=== PATIENT | female | born 1990 | race Hispanic/Latino ===

== ENCOUNTER 2016-11-19 21:33 | Emergency (ER) | payer OTHER ==
[~2016-11-19] VITALS: Ht 172.7 cm; Wt 122.7 kg
[~2016-11-19 21:33] MED LIST: Ascorbic Acid PO; DOCU-41 PO; FERR-74 PO; HYDR-4003 PO; IBUP800T28 PO; PNV1TABL57 PO; PROM25SU46 RC
[2016-11-19 22:08] VITALS: BP 121/82; PULSE 84; RESP 16; O2SAT 98
[2016-11-19 22:59] LABS: BASOPHILS % (AUTO) 0.4 % (0-3); EOSINOPHILS % (AUTO) 1.2 % (0-5); MONOCYTES % (AUTO) 6.1 % (4-12); Mean Corpuscular Hemoglobin 26.9 pg (27.0-35.0); Mean Corpuscular Volume 83.4 fL (81-100); NEUTROPHILS % (AUTO) 56.5 % (40-74); Platelet Count 288 bil/L (150-400)
--- NOTE | 2016-11-19 23:00 | ED.REPORT ---
HPI-Abd Pain F Under 40 Date of Service Nov 19, 2016 ED Provider: MD Kee This is a 26 year old female presenting to the emergency department complaining of suprapubic abdominal pain that began 12 hours ago. Abdominal pain is described as a sharp, stabbing sensation that is intermittent. Pain is exacerbated by movement. Pt adds that her period has been ongoing for the last month and has not stopped, which is abnormal, she is using 4 pads per day. Denies dysuria, hematochezia, nausea, vomiting, diarrhea, constipation. Nursing Notes Stated Complaint: PAIN IN STOMACH Chief Complaint: Female Abdominal Pain Nursing Notes Reviewed: Yes Allergies: Coded Allergies: No Known Allergies (Verified , 11/19/16) Scheduled ([Ascorbic Acid]) 500 MG TABLET 500 MG PO BIDWM Docusate Sodium (Colace) 100 Mg Capsule 100 MG PO BID Ferrous Sulfate (Feosol) 325 Mg Tablet 325 MG PO BIDWM Hyoscyamine SL (Levsin SL) 0.125 Mg Tab.subl 0.125 MG SL TID PNV CMB#95/FERROUS FUMARATE/FA-Expunged Drug, (-Expunged Drug, Do Not Renew!) 1 Each Tablet 1 EACH PO DAILY Scheduled PRN Hydrocodone-Acetaminophen 5-325 mg (Hydrocodone-Acetaminophen 5-325 mg) 1 Each Tablet 1-2 TABLET PO Q4H PRN PRN For Pain Ibuprofen (Ibuprofen) 800 Mg Tablet 800 MG PO Q6H PRN PRN For Pain Promethazine HCl (Phenergan) 25 Mg Supp.rect 25 MG RC QID PRN PRN For Nausea/ Vomiting General Time Seen by MD: 22:59 Chief Complaint Abdominal pain Hx Obtained From: Patient Arrived By: Walk-in Sudden in Onset?: Yes Onset Occurred: 9 - 12 hours ago Symptom Duration: Waxes and wanes Severity: Current: Mild Pertinent Negative: Pt denies other symptoms Recent Healthcare: No recent doctor visit, No recent hospitalization Similar Sx Previous: No Past Medical History Past Medical History Denies Past Surgical History none reported Smoking History Never Smoker Social History Alcohol Use: "Social" Drug Use: Denies drug use Other Social History: Good social support, Occupation works at [employer] Ambulatory Status Independent Review of Systems Constitutional: Denies: Chills, Fever Respiratory: Denies: Shortness of breath Cardiovascular: Denies: Chest pain GI: Reports: Abdominal pain, Denies: Constipation, Diarrhea, Nausea, Vomiting Female: Denies: Dysuria Complete sys rev & neg: except as marked. Physical Exam Initial Vital Signs Vital Signs (First) Date Time Temp Pulse Resp B/P Pulse Ox O2 Delivery O2 Flow Rate FiO2 11/19/16 22:08 36.1 84 16 121/82 98 Room Air Initial VS: Reviewed Head / Eyes: Atraumatic, Normocephalic, PERRL ENT: Mucous membranes moist, Conjunctiva normal, No scleral icterus Neck: Supple, Non-tender, Full range of motion Extremities: Vascular intact, Neuro intact, No swelling, No tenderness Skin: Warm, Dry, No cyanosis Neurologic: Alert, Oriented, Nonfocal Psychiatric: Mood/affect normal, Behavior normal, Normal thought content General/Constitutional: Awake, Alert Respiratory / Chest: Breath sounds NL, Breath sounds = bilat, No respiratory distress, No rales, No rhonchi, No wheezing Cardiovascular: Heart rate NL, Regular rhythm, Heart sounds NL, Peripheral circulation NL Abdomen: No guarding, No rebound, BS normoactive Tenderness/Guarding/Rebound: Positive: Tender LLQ..., Tender RLQ..., Tender suprapubic Back: Inspection NL, Non-tender, No CVA tenderness Female Genitourinary: Epic Ambulatory Analyst present, External genitalia NL, Os closed, No adnexal mass Normal vaginal sanchez without trauma or tears. Physiological discharge, IUD strings visible from cervical os. Mild cervical motion tenderness. Interpretation & Diagnostics Lab Results Interpretation Result Diagram: 11/19/16224911/19/162249 Test 11/19/16 22:50 11/19/16 23:58 White Blood Count 10.3th/mm3 (3.8-10.1) Red Blood Count 4.75mil/mm3 (3.90-5.20) Hemoglobin 12.8g/dL (12.0-15.6) Hematocrit 39.6% (35.0-46.0) Mean Corpuscular Volume 83.4fL (81-100) Mean Corpuscular Hemoglobin 26.9pg (27.0-35.0) Mean Corpuscular Hemoglobin Concent 32.3% (32.0-37.0) Red Cell Distribution Width 13.8% (12.3-15.4) Platelet Count 288bil/L (150-400) Neutrophils (%) (Auto) 56.5% (40-74) Lymphocytes (%) (Auto) 35.7% (14-46) Monocytes (%) (Auto) 6.1% (4-12) Eosinophils (%) (Auto) 1.2% (0-5) Basophils (%) (Auto) 0.4% (0-3) Sodium Level 141mEq/L (134-144) Potassium Level 4.1mEq/L (3.5-5.2) Chloride Level 103mEq/L (97-108) Carbon Dioxide Level 25mmol/L (18-29) Blood Urea Nitrogen 11mg/dL (6-20) Creatinine 0.76mg/dL (0.57-1.00) Estimat Glomerular Filtration Rate 132mL/min (>59) Glucose Level 104mg/dL (60-99) Calcium Level 8.7mg/dL (8.5-10.1) Magnesium Level 1.9mg/dL (1.6-2.6) Total Bilirubin 0.2mg/dL (0.0-1.2) Aspartate Amino Transf (AST/SGOT) 18U/L (0-50) Alanine Aminotransferase (ALT/SGPT) 17U/L (0-32) Alkaline Phosphatase 59U/L (25-150) Total Protein 7.6g/dL (6.4-8.4) Albumin 4.1g/dL (3.4-5.0) Lipase 30U/L (13-60) Hold Lane Top Tube Received (Received) Urine Color Yellow (YELLOW) Urine Appearance Clear (CLEAR,HAZY) Urine pH 6.0 (5.0-8.0) Urine Specific [place] 1.030 (1.003-1.035) Urine Protein Negativemg/dL (NEG,TRACE) Urine Glucose (UA) Negativemg/dL (NEGATIVE) Urine Ketones Negativemg/dL (NEGATIVE) Urine Occult Blood Moderate (NEGATIVE) Urine Nitrite Negative (NEGATIVE) Urine Bilirubin Negative (NEGATIVE) Urine Urobilinogen Normalmg/dL (NORMAL) Urine Leukocyte Esterase Negative (NEGATIVE) Urine RBC 0-2/hpf (0-2) Urine WBC 0-5/hpf (0-5) Urine Epithelial Cells Moderate/hpf (NONE-MOD) Urine Crystals 0 (NONE SEEN) Urine Bacteria Few/hpf (NONE-FEW) Urine Hyaline Casts None/lpf (NONE) Urine Granular Casts None seen (NONE SEEN) Urine Waxy Casts None seen (NONE SEEN) Urine Red Blood Cell Casts None seen (NONE SEEN) Urine White Blood Cell Casts None seen (NONE SEEN) Urine Mucus None seen (None Seen) Urine Trichomonas None seen (NONE SEEN) Urine Yeast None (NONE SEEN) Urinalysis Comment None Urine Culture Reflexed Not indicated Hold Urine Received (Received) Re-Eval/Medical Decision Med Decision/Clinical Course 26-year-old female here with suprapubic abdominal pain. Differential diagnosis includes but is not limited to versus urinary tract infection versus vaginal infection versus PID. Patient's pelvic exam is unremarkable. She has no evidence of BV or yeast infection on wet prep. Her urine test is negative, and she does not have UTI. Her exam is not consistent with PID, as there is no purulent discharge from her cervix, though she has very mild cervical motion tenderness. At this time, I do not feel the patient requires treatment for PID or other infectious process. She is amenable to discharge home with follow-up with her primary care physician and has been given very strict return precautions. Re-Evaluation/Progress : Time of Eval: 00:55 Re-Evaluation/Progress Note: Discussed lab results and plan for discharge, pt understands and agrees with plan, all questions addressed. Counseled Regarding: Diagnosis, Lab results, Need for follow-up, When/why to return to ED Discharge & Departure Primary Impression: Abdominal pain Abdominal location: unspecified location Qualified Code: R10.9 - Unspecified abdominal pain Disposition: Home Discharge Condition All VS Reviewed: Yes Condition: Stable Patient Instructions: Acute Abdominal Pain (ED) Additional Instructions: Thank you for seeking care at the emergency department. Take pain medication as prescribed. Follow-up with your primary care provider. Return to the emergency department for any new or worsening symptoms Referrals: [facility] Scribe Attestation Portions of this note were transcribed by Maliha Melendez. I, Dr. Sweet personally performed the history, physical exam and medical decision-making; I reviewed and confirmed the accuracy of the information in the transcribed note. Signed by: sandeep Sheikh. 11/19/2016, 03:00. Sanna Sweet MD Nov 19, 2016 23:00 MALIHA MELENDEZ Nov 19, 2016 23:12
[2016-11-19 23:19] LABS: Magnesium 1.9 mg/dL (1.6-2.6)
[2016-11-20 00:29] LABS: APPEARANCE,URINE CLEAR (CLEAR,HAZY); COLOR,URINE YELLOW (YELLOW); OCCULT BLOOD,URINE MODERATE (NEGATIVE); UROBILINOGEN,URINE NORMAL (NORMAL)
[2016-11-20] MEDS ORDERED: HYOS0.1281 SL (01:00)
[2016-11-20 01:17] VITALS: BP 123/79; PULSE 88; RESP 16; O2SAT 95
== END 2016-11-20 01:20 | disposition home or self-care (01) ==
LOC: SED 21:33
DX: R10.30 Lower abdominal pain, unspecified (principal); Z97.5 Presence of (intrauterine) contraceptive device

== ENCOUNTER 2016-11-29 19:26 | Emergency (ER) | payer OTHER ==
[~2016-11-29] VITALS: Ht 175.3 cm; Wt 270.0 kg
[~2016-11-29 19:26] MED LIST changes: +HYOS0.1281 SL
[2016-11-29 19:37] VITALS: BP 119/72; PULSE 69; RESP 14; O2SAT 100
[2016-11-29 20:05] LABS: BASOPHILS % (AUTO) 0.3 % (0-3); MONOCYTES % (AUTO) 6.6 % (4-12); Mean Corpuscular Hemoglobin 26.8 pg (27.0-35.0); Mean Corpuscular Volume 83.6 fL (81-100); Platelet Count 277 bil/L (150-400)
[2016-11-29 20:28] LABS: Magnesium 1.9 mg/dL (1.6-2.6)
[2016-11-29 21:13] LABS: APPEARANCE,URINE HAZY (CLEAR,HAZY); COLOR,URINE YELLOW (YELLOW); OCCULT BLOOD,URINE LARGE (NEGATIVE)
[2016-11-29 21:14] LABS: UROBILINOGEN,URINE NORMAL (NORMAL)
--- NOTE | 2016-11-29 21:51 | ED.REPORT ---
HPI-Abd Pain F Under 40 Date of Service Nov 29, 2016 ED Provider: Dr. Peter Rivas M.D. A healthy 26 year old female s/p copper IUD implant (01/2016) presents to the ED with intermittent suprapubic pain onset two weeks ago. The patient also reports vaginal bleeding onset six weeks ago that began as a normal menstrual period. She denies nausea, vomiting, or dysuria. The patient was recently seen in the ED with similar symptoms on 11/19/16. Nursing Notes Stated Complaint: STOMACH PAIN Chief Complaint: Female Abdominal Pain Nursing Notes Reviewed: Yes Allergies: Coded Allergies: No Known Allergies (Verified , 11/29/16) Scheduled ([Ascorbic Acid]) 500 MG TABLET 500 MG PO BIDWM Docusate Sodium (Colace) 100 Mg Capsule 100 MG PO BID Doxycycline Monohyd (Doxycycline Monohyd) 100 Mg Capsule 100 MG PO BID Ferrous Sulfate (Feosol) 325 Mg Tablet 325 MG PO BIDWM Hyoscyamine SL (Levsin SL) 0.125 Mg Tab.subl 0.125 MG SL TID Metronidazole (Metronidazole) 500 Mg Tablet 500 MG PO TID PNV CMB#95/FERROUS FUMARATE/FA-Expunged Drug, (-Expunged Drug, Do Not Renew!) 1 Each Tablet 1 EACH PO DAILY Scheduled PRN Hydrocodone-Acetaminophen 5-325 mg (Hydrocodone-Acetaminophen 5-325 mg) 1 Each Tablet 1-2 TABLET PO Q4H PRN PRN For Pain Ibuprofen (Ibuprofen) 800 Mg Tablet 800 MG PO Q6H PRN PRN For Pain Naproxen (Naprosyn) 500 Mg Tablet 500 MG PO BID PRN PRN For Pain Promethazine HCl (Phenergan) 25 Mg Supp.rect 25 MG RC QID PRN PRN For Nausea/ Vomiting General Time Seen by MD: 21:51 Chief Complaint Abdominal pain (Suprapubic) Hx Obtained From: Patient Arrived By: Walk-in Sudden in Onset?: Yes Onset Occurred: More than a week ago... (2 weeks) Symptom Duration: Intermittent Location: : Suprapubic Quality: Painful Severity: Current: Moderate Severity: Maximum: Moderate Associated with: Reports: Vaginal bleeding, Denies: Dysuria, Fever, Nausea, Vomiting Sexual History / Control: Reports IUD (Copper) Pertinent Negative: Relieved by nothing Recent Healthcare: Recent doctor visit Similar Sx Previous: Yes Past Medical History Past Medical History Denies Past Surgical History None reported Smoking History Never Smoker Social History Alcohol Use: "Social" Drug Use: Denies drug use Other Social History: Good social support, Occupation works at [employer] Ambulatory Status Independent Review of Systems Constitutional: Denies: Fever Respiratory: Denies: Non-productive cough, Shortness of breath GI: Reports: Abdominal pain (Suprapubic), Denies: Nausea, Vomiting Female: Reports: Vaginal bleeding - abnl (6 weeks), Denies: Dysuria Complete sys rev & neg: except as marked. Physical Exam Initial Vital Signs Vital Signs (First) Date Time Temp Pulse Resp B/P Pulse Ox O2 Delivery O2 Flow Rate FiO2 11/29/16 19:37 36.1 69 14 119/72 100 Room Air Initial VS: Reviewed Head / Eyes: Atraumatic, Normocephalic ENT: Conjunctiva normal, No scleral icterus Neck: Supple, Full range of motion Skin: Warm, Dry, No cyanosis Neurologic: Alert, Oriented, Nonfocal Psychiatric: Mood/affect normal, Behavior normal, Normal thought content General/Constitutional: Awake, Alert, No acute distress Respiratory / Chest: Breath sounds NL, Breath sounds = bilat, No respiratory distress Cardiovascular: Heart rate NL, Regular rhythm, Heart sounds NL Abdomen: Soft, Non-tender Obese Female 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 Vaginal Bleeding / Discharge: Positive: Discharge scant (Sent to lab) Pelvic Exam: Positive: IUD present (Shallowly implanted ), Uterus tender (Mild) Interpretation & Diagnostics URINE : Negative URINE DIPSTICK: 1.005 sp gravity 7 pH ++ Leukocyte Esterase Normal Glucose Normal Urobilinogen ~250 Jesús/ml Blood Lab Results Interpretation Result Diagram: 11/29/16 1950 11/29/16 1950 Test 11/29/16 19:50 11/29/16 20:38 White Blood Count 9.7th/mm3 (3.8-10.1) Red Blood Count 4.63mil/mm3 (3.90-5.20) Hemoglobin 12.4g/dL (12.0-15.6) Hematocrit 38.7% (35.0-46.0) Mean Corpuscular Volume 83.6fL (81-100) Mean Corpuscular Hemoglobin 26.8pg (27.0-35.0) Mean Corpuscular Hemoglobin Concent 32.0% (32.0-37.0) Red Cell Distribution Width 13.9% (12.3-15.4) Platelet Count 277bil/L (150-400) Neutrophils (%) (Auto) 61.0% (40-74) Lymphocytes (%) (Auto) 30.9% (14-46) Monocytes (%) (Auto) 6.6% (4-12) Eosinophils (%) (Auto) 1.0% (0-5) Basophils (%) (Auto) 0.3% (0-3) Sodium Level 138mEq/L (134-144) Potassium Level 4.1mEq/L (3.5-5.2) Chloride Level 101mEq/L (97-108) Carbon Dioxide Level 25mmol/L (18-29) Blood Urea Nitrogen 13mg/dL (6-20) Creatinine 0.59mg/dL (0.57-1.00) Estimat Glomerular Filtration Rate 176mL/min (>59) Glucose Level 98mg/dL (60-99) Calcium Level 8.7mg/dL (8.5-10.1) Magnesium Level 1.9mg/dL (1.6-2.6) Total Bilirubin 0.2mg/dL (0.0-1.2) Aspartate Amino Transf (AST/SGOT) 19U/L (0-50) Alanine Aminotransferase (ALT/SGPT) 19U/L (0-32) Alkaline Phosphatase 57U/L (25-150) Total Protein 7.7g/dL (6.4-8.4) Albumin 4.1g/dL (3.4-5.0) Lipase 33U/L (13-60) Hold Lane Top Tube Received (Received) Urine Color Yellow (YELLOW) Urine Appearance Hazy (CLEAR,HAZY) Urine pH 7.0 (5.0-8.0) Urine Specific [place] 1.015 (1.003-1.035) Urine Protein Negativemg/dL (NEG,TRACE) Urine Glucose (UA) Negativemg/dL (NEGATIVE) Urine Ketones Negativemg/dL (NEGATIVE) Urine Occult Blood Large (NEGATIVE) Urine Nitrite Negative (NEGATIVE) Urine Bilirubin Negative (NEGATIVE) Urine Urobilinogen Normalmg/dL (NORMAL) Urine Leukocyte Esterase Moderate (NEGATIVE) Urine RBC 0-2/hpf (0-2) Urine WBC 6-10/hpf (0-5) Urine Epithelial Cells Many/hpf (NONE-MOD) Urine Crystals None seen (NONE SEEN) Urine Bacteria Moderate/hpf (NONE-FEW) Urine Hyaline Casts None/lpf (NONE) Urine Granular Casts None seen (NONE SEEN) Urine Waxy Casts None seen (NONE SEEN) Urine Red Blood Cell Casts None seen (NONE SEEN) Urine White Blood Cell Casts None seen (NONE SEEN) Urine Mucus None seen (None Seen) Urine Trichomonas None seen (NONE SEEN) Urine Yeast None (NONE SEEN) Urinalysis Comment None Urine Culture Reflexed Indicated Procedures IUD REMOVAL: Time: 22:30 Patient consent for procedure Appropriate hand hygiene utilized IUD removed easily No complications Tolerated procedure well Patient stable Re-Eval/Medical Decision Med Decision/Clinical Course Med Decision/Clinical Course: 26-year-old with menorrhagia for a month, who is ten months out from placement of a copper IUD. She has very low-grade evidence of UTI today, but her bleeding is clearly not related to her UTI. Discussed various alternatives with her including an attempt at clearing this endometritis with antibiotics, and the probable failure, as long as the IUD remains in place. She first have it out, that was accomplished. Of note, the IUD was not very deeply placed in uterus with a lot of string protruding and the tip of it just barely up above the cervical canal. Some of her pain and possibly the boat of infection relates to its apparent malposition within the uterus. It may have migrated after placement. Cultures were obtained. She was begun with Rocephin here, with doxycycline and Flagyl to follow. Naprosyn for pain and bleeding relief. Follow up with PCP. Re-Evaluation/Progress : Time of Eval: 22:30 Re-Evaluation/Progress Note: Pelvic exam performed and IUD removed. Discussed with patient lab results, diagnosis, and plan for discharge. Follow-up and return to the ER instructions given. Patient agrees with plan for care and all questions were addressed. Counseled Regarding: Diagnosis, Lab results, Need for follow-up, When/why to return to ED Discharge & Departure Shift Change Sign-Out Response to Therapy: Improved Primary Impression: Endometritis Additional Impression: Malpositioned intrauterine device Encounter type: initial encounter Qualified Code: T83.89XA - Other specified complication of genitourinary prosthetic devices, implants and grafts , initial encounter Disposition: Home Discharge Condition All VS Reviewed: Yes Condition: Improved Patient Instructions: Endometriosis (ED) Additional Instructions: Flagyl three times daily. Doxycycline twice daily for ten days Naprosyn twice daily for cramps and bleeding. Follow-up with your doctor in the office Use an alternative means of control Return for any immediate issues Referrals: NOPCP (PCP) [facility] Scribvikki Attestation Portions of this note were transcribed by Claudia Bates. I, Dr. Rivas, personally performed the history, physical exam, and medical decision-making; I reviewed and confirmed the accuracy of the information in the transcribed note. Signed by: Danielle Diggs, 11/30/2016, 01:15 copies to: [facility] Peter Rivas MD Nov 29, 2016 21:51 CLAUDIA BATES Nov 29, 2016 22:05
[2016-11-29] MEDS ORDERED: cefTRIAXone Inj 500 MG, Lidocaine PF 1% Inj 1 ML in Syringe 1 EACH IM ONE (22:55)
[2016-11-29] MEDS ORDERED: DOXY100C43 PO (22:59)
[2016-11-29] MEDS ORDERED: METR500T19 PO (22:59)
[2016-11-29] MEDS ORDERED: NAPR500T PO (23:00)
[2016-11-29 23:45] VITALS: BP 132/94; PULSE 68; RESP 20; O2SAT 100
== END 2016-11-29 23:46 | disposition home or self-care (01) ==
LOC: SED 19:26
DX: T83.32XA Displacement of intrauterine contraceptive device, initial encounter (principal); N71.9 Inflammatory disease of uterus, unspecified; Y84.8 Other medical procedures as the cause of abnormal reaction of the patient, or of later complication, without mention of misadventure at the time of the procedure; Y93.9 Activity, unspecified; Y92.9 Unspecified place or not applicable; Y99.9 Unspecified external cause status
CPT/HCPCS: 36415; 58301; 80053; 81000; 81025; 83690; 83735; 85025; 87070; 87075; 87077; 87086; 87088; 87186; 87205; 87210; 87491; 87591; 96372; 99284; G0463; J0696

== ENCOUNTER 2017-02-14 08:23 | Emergency (ER) | payer OTHER ==
[~2017-02-14] VITALS: Ht 175.3 cm; Wt 122.7 kg
[~2017-02-14 08:23] MED LIST changes: +DOXY100C43 PO; +METR500T19 PO; +NAPR500T PO
[2017-02-14 08:26] VITALS: BP 121/78; PULSE 82; RESP 16; O2SAT 97
--- NOTE | 2017-02-14 08:28 | ED.REPORT ---
HPI-Abd Pain F Under 40 Date of Service February 14, 2017 ED Provider: The patient is a 26 year old female with no pertinent medical history, who presents to the emergency department complaining of right lower abdominal pain that began 2 days ago. The patient is currently about 5 weeks . She was seen at urgent care 2 days ago for the same and had an ultrasound that was unable to rule out ectopic . She was started on Clindamycin for bacterial vaginosis. She was seen by an OBGYN (Dr. Devika Luevano) yesterday who told her to it was too early to tell. The patient returns today complaining of increased RLQ pain, fatigue, and lightheadedness. She denies vaginal bleeding , vaginal discharge, diarrhea, nausea, vomiting, constipation, dysuria, hematuria, fever or chills. Nursing Notes Stated Complaint: LOW STOMACH PAIN Chief Complaint: Female Abdominal Pain Nursing Notes Reviewed: Yes Allergies: Coded Allergies: No Known Allergies (Verified , 11/29/16) Scheduled Clindamycin (Clindamycin) 300 Mg Capsule 300 MG PO BID Qfo842/Iron Fumarate/FA/Dss ( 19 Tablet) 1 Each Tablet 1 EACH PO DAILY General Time Seen by MD: 08:29 Chief Complaint Abdominal pain Hx Obtained From: Patient Arrived By: Walk-in Sudden in Onset?: Yes Onset Occurred: 2 days ago Symptom Duration: Since onset Progression since Onset: Constant, Gradually worsening Location: : RLQ Quality: Painful Severity: Current: Moderate Severity: Maximum: Severe Status: Positive - home urine HCG, Positive - ED urine HCG Recent Healthcare: No recent hospitalization, Recent doctor visit Similar Sx Previous: No Past Medical History Past Medical History Notes: , currently 5 weeks According to previous note the patient is AB+ Past Medical History Denies Past Surgical History None reported Family History Noncontributory Smoking History Never Smoker Social History Alcohol Use: Denies alcohol use Drug Use: Denies drug use Other Social History: Good social support, , Local resident Occupation works at [employer] Ambulatory Status Independent Review of Systems Constitutional: Reports: Fatigue, Denies: Chills, Fever GI: Reports: Abdominal pain, Denies: Constipation, Diarrhea, Vomiting Female: Reports: , Denies: Dysuria, Hematuria, Vaginal bleeding - abnl, Vaginal discharge Complete sys rev & neg: except as marked. Neurologic: Reports: Lightheaded Physical Exam Initial Vital Signs Vital Signs (First) Date Time Temp Pulse Resp B/P Pulse Ox O2 Delivery O2 Flow Rate FiO2 02/14/17 08:26 36.8 82 16 121/78 97 Room Air Initial VS: Reviewed Head / Eyes: Atraumatic, Normocephalic, PERRL ENT: Mucous membranes moist, Conjunctiva normal, No scleral icterus Neck: Supple, Non-tender, Full range of motion Lymphatic: No lymphadenopathy Extremities: Vascular intact, Neuro intact, No swelling, No tenderness Skin: Warm, Dry, No cyanosis Neurologic: Alert, Oriented, Nonfocal Psychiatric: Mood/affect normal, Behavior normal, Normal thought content General/Constitutional: Awake, Alert, No acute distress, Well appearing Respiratory / Chest: Atraumatic, Breath sounds NL, Breath sounds = bilat, No respiratory distress, No rales, No rhonchi, No wheezing Cardiovascular: Heart rate NL, Regular rhythm, Heart sounds NL, No gallop, No murmurs, No rubs, Peripheral circulation NL Abdomen: Soft, No guarding, No rebound, BS normoactive, No distention, No hernia, No palpable mass Right pelvic tenderness Back: Inspection NL, Non-tender, No CVA tenderness Female Genitourinary: Exam deferred Interpretation & Diagnostics Interpretation & Diagnostics: 02/12/2017 LABS: hCG 3642 hct 38.3 Platelets 261 WBC 8.6 Clue cells present on vaginal swab Negative gonorrhea and chlamydia Urine culture showed mixed urogenital rober (02/12/2017) OUTPATIENT US OB IMPRESSION: 8mm saclike intrauterine fluid collection is seen without pole or yolk sac. Differential considerations would include early intrauterine gestation as well as occult ectopic . Recommend clinical correlation with serial beta-hCGs and/or followup sonographic imaging if indicated. Dictated by: Gopi Martinze RRSara Interpreted: Anna Lee MD on 02/12/2017 at 11: 52 OB US FROM TODAY IMPRESSION: 1. Saclike fluid collection redemonstrated unchanged in size with mean sac diameter measuring 8 mm corresponding to roughly 5 weeks 4 days. The saclike fluid collection appears to be abnormally positioned superiorly in the uterus with surrounding myometrium estimated at 5 mm. Interstitial location of the cannot be excluded and close clinical correlation and followup is recommended. 2. As before, no definite double decidual sac sign, yolk sac or pole is present and viability of the cannot be determined. Dr. Templeton given results at 1000 hrs. 02.14.17. Dictated by: Gopi SCOTT Interpreted: Nain River MD on 02/14/2017 at 12: 08 Lab Results Interpretation Result Diagram: 02/14/17 0848 02/14/17 0848 Test 02/14/17 08:48 02/14/17 08:57 White Blood Count 8.3th/mm3 (3.8-10.1) Red Blood Count 4.44mil/mm3 (3.90-5.20) Hemoglobin 12.1g/dL (12.0-15.6) Hematocrit 36.8% (35.0-46.0) Mean Corpuscular Volume 82.9fL (81-100) Mean Corpuscular Hemoglobin 27.3pg (27.0-35.0) Mean Corpuscular Hemoglobin Concent 32.9% (32.0-37.0) Red Cell Distribution Width 14.7% (12.3-15.4) Platelet Count 247bil/L (150-400) Sodium Level 139mEq/L (134-144) Potassium Level 3.8mEq/L (3.5-5.2) Chloride Level 105mEq/L (97-108) Carbon Dioxide Level 20mmol/L (18-29) Blood Urea Nitrogen 9mg/dL (6-20) Creatinine 0.52mg/dL (0.57-1.00) Estimat Glomerular Filtration Rate 204mL/min (>59) Glucose Level 105mg/dL (60-99) Calcium Level 8.7mg/dL (8.5-10.1) Total Bilirubin 0.3mg/dL (0.0-1.2) Aspartate Amino Transf (AST/SGOT) 14U/L (0-50) Alanine Aminotransferase (ALT/SGPT) 16U/L (0-32) Alkaline Phosphatase 52U/L (25-150) Total Protein 7.2g/dL (6.4-8.4) Albumin 3.9g/dL (3.4-5.0) HCG Beta Subunit 6689mIU/mL Hold Urine Received (Received) Re-Eval/Medical Decision Med Decision/Clinical Course Med Decision/Clinical Course: Patient's signs and symptoms and clinical history including previous imaging are suspicious for ectopic . Once labs and ultrasound were obtained an OBconsulted in the ER was requested. The patient was seen and evaluated by POLICE SUPERINTENDENT who does not feel that this is an ectopic and discussed discharge planning with the patient. She was in agreement with this. Strict return in follow-up precautions are given. Source of Hx: Old records Re-Evaluation/Progress : Time of Eval: 13:15 Re-Evaluation/Progress Note: Rechecked the patient. Discussed plan for discharge with outpatient followup. All questions were addressed. Consultation #1: Referral / Consult Name: Carlos Sierra MD Call Returned at: 10:55 Note: Spoke with the one of the OBGYN's at the women[facility] clinic, about the patient's case and ultrasound results. He is not route driver salesperson today but took down the patient's info and he will try to get someone to come down and see her. Consultation #2: Referral / Consult Name: Kathleen Peter MD Call Returned at: 11:46 Biological Lab Technician: Will see patient, Agrees with eval, Agrees with plan Note: Spoke with the on-call OBGYN about the patient's case and ultrasound results. Will come and see the patient. Consultation #3: Referral / Consult Name: Kathleen Peter MD Call Returned at: 13:00 Note: Dr. Peter examined the patient and feels that she is safe to go home with outpatient followup. Counseled Regarding: Diagnosis, Lab results Discharge & Departure Primary Impression: Pelvic pain Additional Impression: Weeks of gestation: less than 8 weeks Qualified Code: Z3A.01 - Less than 8 weeks gestation of Disposition: Home Discharge Condition All VS Reviewed: Yes Condition: Stable Patient Instructions: (GEN) Additional Instructions: Thank you for entrusting us with your care today. Dr. Peter, the on-call OBGYN examined you and looked at your results. He feels that you are safe to go home at this time. You have an appointment to get a repeat hCG this Saturday and you have another appointment ultrasound to get a repeat ultrasound next week. You need to call the women's clinic today to schedule a followup appointment with one of the physicians. Return to the emergency department for increased pain, vaginal bleeding, lightheadedness, dizziness, shortness of breath or any other new or worsening symptoms. Referrals: Devika Luevano MD Attestation Portions of this note were transcribed by Ysabel Donaldson. I, Dr. Templeton personally performed the history, physical exam and medical decision-making; I reviewed and confirmed the accuracy of the information in the transcribed note. Signed by: Danielle Matt, 02/14/2017 at 1400. copies to: Devika Luevano MD, Timothy S DO February 14, 2017 08:28 Ysabel Donaldson February 14, 2017 08:30
[2017-02-14] MEDS ORDERED: 0.9% Sodium Chloride 1,000 ML IV ONE ×2 (08:37→10:35)
[2017-02-14 09:01] LABS: Mean Corpuscular Hemoglobin 27.3 pg (27.0-35.0); Mean Corpuscular Volume 82.9 fL (81-100)
[2017-02-14] MEDS ORDERED: PREN-56 PO (09:36)
[2017-02-14] MEDS ORDERED: CLIN-78 PO (09:38)
[2017-02-14] MEDS ORDERED: Ondansetron 2 mg/mL 2 mL Inj IVPUSH PRN (09:45)
[2017-02-14 11:00] VITALS: BP 123/70; PULSE 74; RESP 15; O2SAT 98
--- NOTE | 2017-02-14 12:15 | DRSVH ---
PROCEDURE: US PELVIC SONOGRAM + TRANSVAGINAL SONOGRAM INDICATIONS: rule out ectopic TECHNIQUE: Real-time scanning was performed of the pelvic organs, with image documentation. Additional endovagi nal scanning was necessary due to incomplete visualization of the adnexal and endometrial structures by transabdominal scanning. COMPARISON: [facility] Ul[facility]ound, US, US OB<14 WKS+OB TRANSVAG, 02/12/2017, 10:56. FINDINGS: Transabdominal scanning: Limited scanning through the kidneys shows no hydronephrosis. No pathologi c free abdominal or pelvic fluid. Endovaginal scanning: Uterus: Uterus is normal in size. Saclike fluid collection again seen within the uterus not signifi cantly changed in size with mean sac diameter of 8 mm corresponding to 5 weeks 4 days. On today's ex amination, the sac appears to be positioned within the superior aspect of the uterus with roughly 5 m m of surrounding myometrium. Interstitial location of the cannot be excluded. Yolk sac or pole again not visualized and no definite double decidual sac sign. Ovaries: Within normal limits bilaterally. No adnexal masses seen. IMPRESSION: 1. Saclike fluid collection redemonstrated unchanged in size with mean sac diameter measuring 8 mm co rresponding to roughly 5 weeks 4 days. The saclike fluid collection appears to be abnormally positio latosha superiorly in the uterus with surrounding myometrium estimated at 5 mm. Interstitial location of the cannot be excluded and close clinical correlation and followup is recommended. 2. As before, no definite double decidual sac sign, yolk sac or pole is present and viability o f the cannot be determined. Dr. Templeton given results at 1000 hrs. 5. Dictated by: Gopi SCOTT Interpreted: Nain River MD on 02/14/2017 at 12:08 Transcribed by: KLEVER on 02/14/2017 at 12:14 Approved by: Fco River M.D. on 02/14/2017 at 12:44
--- NOTE | 2017-02-14 13:10 | PCM.CONSUR ---
Subjective Date of Service: February 14, 2017 History of Present Illness Gretel is a 26-year-old 4 para 3 who presented to the emergency room today with complaints of dizziness, shortness of breath and feeling like she was given a pass out. She reports that she had increased right lower quadrant pain that was about a 6 out of 10. She was previously seen in urgent care 2 days ago and had a quantitative hCG at that time was 3642 and had a transvaginal ultrasound showing an irregular appearing gestational sac without a pole. Repeat pelvic ultrasound today again shows a empty gestational sac in the fundal region that is unchanged in size from her previous ultrasound several days ago. Her quantitative hCG has increased to over 6889. She has a normal hemoglobin and hematocrit. Laboratory Tests 72 Hours Test 02/14/17 08:48 02/14/17 08:57 White Blood Count 8.3th/mm3 (3.8-10.1) Red Blood Count 4.44mil/mm3 (3.90-5.20) Hemoglobin 12.1g/dL (12.0-15.6) Hematocrit 36.8% (35.0-46.0) Mean Corpuscular Volume 82.9fL (81-100) Mean Corpuscular Hemoglobin 27.3pg (27.0-35.0) Mean Corpuscular Hemoglobin Concent 32.9% (32.0-37.0) Red Cell Distribution Width 14.7% (12.3-15.4) Platelet Count 247bil/L (150-400) Sodium Level 139mEq/L (134-144) Potassium Level 3.8mEq/L (3.5-5.2) Chloride Level 105mEq/L (97-108) Carbon Dioxide Level 20mmol/L (18-29) Blood Urea Nitrogen 9mg/dL (6-20) Creatinine 0.52mg/dL (0.57-1.00) Estimat Glomerular Filtration Rate 204mL/min (>59) Glucose Level 105mg/dL (60-99) Calcium Level 8.7mg/dL (8.5-10.1) Total Bilirubin 0.3mg/dL (0.0-1.2) Aspartate Amino Transf (AST/SGOT) 14U/L (0-50) Alanine Aminotransferase (ALT/SGPT) 16U/L (0-32) Alkaline Phosphatase 52U/L (25-150) Total Protein 7.2g/dL (6.4-8.4) Albumin 3.9g/dL (3.4-5.0) HCG Beta Subunit 6689mIU/mL Hold Urine Received (Received) Allergy Allergies: Coded Allergies: No Known Allergies (Verified , 11/29/16) Medications Clindamycin (Clindamycin) 300 Mg Capsule 300 MG PO BID (Reported) [id number]/Iron Fumarate/FA/Dss ( 19 Tablet) 1 Each Tablet 1 EACH PO DAILY ( Reported) Discontinued Medications ([Ascorbic Acid]) 500 MG TABLET 500 MG PO BIDWM Prescribed by: TORY POOL DO Docusate Sodium (Colace) 100 Mg Capsule 100 MG PO BID Prescribed by: TORY POOL DO Doxycycline Monohyd (Doxycycline Monohyd) 100 Mg Capsule 100 MG PO BID Prescribed by: JOSE LUIS PÉREZ MD Ferrous Sulfate (Feosol) 325 Mg Tablet 325 MG PO BIDWM Prescribed by: TORY POOL DO Hydrocodone-Acetaminophen 5-325 mg (Hydrocodone-Acetaminophen 5-325 mg) 1 Each Tablet 1-2 TABLET PO Q4H PRN PRN For Pain Prescribed by: TORY POOL DO Hyoscyamine SL (Levsin SL) 0.125 Mg Tab.subl 0.125 MG SL TID Prescribed by: DEXTER NORMAN Ibuprofen (Ibuprofen) 800 Mg Tablet 800 MG PO Q6H PRN PRN For Pain Prescribed by: TORY POOL DO Metronidazole (Metronidazole) 500 Mg Tablet 500 MG PO TID Prescribed by: JOSE LUIS PÉREZ MD Naproxen (Naprosyn) 500 Mg Tablet 500 MG PO BID PRN PRN For Pain Prescribed by: JOSE LUIS PÉREZ MD PNV CMB#95/FERROUS FUMARATE/FA-Expunged Drug, (-Expunged Drug, Do Not Renew!) 1 Each Tablet 1 EACH PO DAILY (Reported) Promethazine HCl (Phenergan) 25 Mg Supp.rect 25 MG RC QID PRN PRN For Nausea/ Vomiting Prescribed by: TITA PATTERSON MD Past Surgical History Surgeries: No Social History Hx Alcohol Use: No Hx Substance Use: No Hx Tobacco Use: No PMH HEENT History History of ENT Problems?: No Cardiovascular History History of Heart Problems?: No Cardiovascular History: Denies:: Congestive Heart Failure Hypertension Respiratory History of Respiratory Problem: No Respiratory History: Denies:: Tuberculosis Neurological History Hx Neurologic Problems?: No Gastrointestinal History HX of GI Problems?: No Genitourinary History Hx of Gu Problems?: No Musculoskeletal History Hx Musculoskeletal Problems?: No Other History Hx Any Other Health Problems?: No Diabetes: No Social History Hx Alcohol Use: NoHx Substance Use: NoHx Tobacco Use: No Smoking Status: Never Smoker Family History Family History: Noncontributory Objective Exam Vital Signs & I/O Vital Sign- Last 8 Hours Date Time Temp Pulse Resp B/P Pulse Ox O2 Delivery O2 Flow Rate FiO2 02/14/17 11:00 74 15 123/70 98 Room Air 02/14/17 08:26 36.8 82 16 121/78 97 Room Air Lab & Micro Results Laboratory Tests Test 02/14/17 08:48 02/14/17 08:57 White Blood Count 8.3th/mm3 (3.8-10.1) Red Blood Count 4.44mil/mm3 (3.90-5.20) Hemoglobin 12.1g/dL (12.0-15.6) Hematocrit 36.8% (35.0-46.0) Mean Corpuscular Volume 82.9fL (81-100) Mean Corpuscular Hemoglobin 27.3pg (27.0-35.0) Mean Corpuscular Hemoglobin Concent 32.9% (32.0-37.0) Red Cell Distribution Width 14.7% (12.3-15.4) Platelet Count 247bil/L (150-400) Sodium Level 139mEq/L (134-144) Potassium Level 3.8mEq/L (3.5-5.2) Chloride Level 105mEq/L (97-108) Carbon Dioxide Level 20mmol/L (18-29) Blood Urea Nitrogen 9mg/dL (6-20) Creatinine 0.52mg/dL (0.57-1.00) Estimat Glomerular Filtration Rate 204mL/min (>59) Glucose Level 105mg/dL (60-99) Calcium Level 8.7mg/dL (8.5-10.1) Total Bilirubin 0.3mg/dL (0.0-1.2) Aspartate Amino Transf (AST/SGOT) 14U/L (0-50) Alanine Aminotransferase (ALT/SGPT) 16U/L (0-32) Alkaline Phosphatase 52U/L (25-150) Total Protein 7.2g/dL (6.4-8.4) Albumin 3.9g/dL (3.4-5.0) HCG Beta Subunit 6689mIU/mL Hold Urine Received (Received) Result Diagram: 02/14/1784702/14/17847 Review of Systems: Constitutional: Negative, except as otherwise mentioned in the history above. Ophthalmologic: Negative, except as otherwise mentioned in the history above. Cardiovascular: Negative, except as otherwise mentioned in the history above. Respiratory: Negative, except as otherwise mentioned in the history above. Gastrointestinal: Negative, except as otherwise mentioned in the history above. Genitourinary: Negative, except as otherwise mentioned in the history above. Musculoskeletal: Negative, except as otherwise mentioned in the history above. Neurological: Negative, except as otherwise mentioned in the history above. Psychiatric: Negative, except as otherwise mentioned in the history above. Hematologic/Lymphatic: Negative, except as otherwise mentioned in the history above. Allergic/Immunologic: Negative, except as otherwise mentioned in the history above. H&P Surgical Exam Exam General: Alert, Oriented X3, Cooperative, No Acute Distress HEENT: Within normal limits & unremarkable Respiratory: Clear to Auscultation Cardiac: Exam Unremarkable Abdomen: Soft, No tenderness Assessment & Plan Assessment 26-year-old female with probable early anembryonic gestation versus early versus ectopic . Problems: (1) Plan: I have reviewed the patient's ultrasound images and feel that there is a small empty gestational sac contained within the uterus. There was no free fluid or adnexal masses appreciated. This may represent an early anembryonic gestation. I recommended that the patient continue to follow-up as scheduled. She'll plan to have a repeat hCG done on Saturday and repeat pelvic ultrasound again next Saturday and she will follow-up after ultrasound to review her an ultrasound and to discuss if there is any further treatment options. I reviewed ectopic precautions with her today. Also advised her to stay well hydrated and avoid any strenuous activity at this time. Status: Acute ICD Code: Z33.1 Kathleen Peter MD February 14, 2017 13:10
[2017-02-14 13:52] VITALS: BP 123/70; PULSE 74; RESP 15; O2SAT 98
== END 2017-02-14 13:30 | disposition home or self-care (01) ==
LOC: SED 08:23
DX: O26.891 Other specified pregnancy related conditions, first trimester (principal); R10.2 Pelvic and perineal pain; Z3A.01 Less than 8 weeks gestation of pregnancy
CPT/HCPCS: 36415; 76830; 76856; 80053; 81025; 84702; 85027; 96361; 96374; 96375; 99285; J2270; J2405; J7030

== ENCOUNTER 2017-02-19 10:00 | Emergency (ER) | payer OTHER ==
[~2017-02-19] VITALS: Ht 175.3 cm; Wt 122.7 kg
[~2017-02-19 10:00] MED LIST changes: -Ascorbic Acid PO; +CLIN-78 PO; -DOCU-41 PO; -DOXY100C43 PO; -FERR-74 PO; -HYDR-4003 PO; -HYOS0.1281 SL; -IBUP800T28 PO; -METR500T19 PO; -NAPR500T PO; -PNV1TABL57 PO; +PREN-56 PO; -PROM25SU46 RC
[2017-02-19 10:24] VITALS: BP 131/89; PULSE 66; RESP 18; O2SAT 100
[2017-02-19 11:00] LABS: Mean Corpuscular Hemoglobin 27.4 pg (27.0-35.0)
[2017-02-19 11:14] LABS: APPEARANCE,URINE HAZY (CLEAR,HAZY); COLOR,URINE STRAW (YELLOW); PH,URINE 7.5 (5.0-8.0)
[2017-02-19 11:15] LABS: OCCULT BLOOD,URINE NEGATIVE (NEGATIVE); UROBILINOGEN,URINE NORMAL (NORMAL)
[2017-02-19] MEDS ORDERED: Ondansetron 2 mg/mL 2 mL Inj ONE (11:22)
[2017-02-19] MEDS ORDERED: HYDROmorphone 0.5 mg/0.5 mL iSecure Syringe ONE (11:22)
--- NOTE | 2017-02-19 11:27 | ED.REPORT ---
HPI-Preg Under 20 Weeks Date of Service February 19, 2017 ED Provider: Kayden Templeton DO 26 year old female who is and currently 5 weeks presents to the ER complaining of worsening persistent right lower quadrant pain. Pain is described as "strong period cramps" and radiates to her back. Associated symptoms include abdominal discomfort and lightheadedness. Patient denies vaginal bleeding, dysuria, urinary urgency, urinary frequency, and other UTI symptoms. I saw the patient here in the department five days ago for similar symptoms. A week ago she had a ultrasound done to rule out ectopic , and was started on a course of clindamycin to treat bacterial vaginosis at that time. Nursing Notes Stated Complaint: ABDOMINAL PAIN Chief Complaint: Female Abdominal Pain Nursing Notes Reviewed: Yes Allergies: Coded Allergies: No Known Allergies (Verified , 11/29/16) Scheduled Clindamycin (Clindamycin) 300 Mg Capsule 300 MG PO BID [id number]/Iron Fumarate/FA/Dss ( 19 Tablet) 1 Each Tablet 1 EACH PO DAILY General Time Seen by Provider: 11:20 Chief Complaint Abdominal cramping Hx Obtained From: Patient Arrived By: Walk-in Onset Occurred: 1 week ago Symptom Duration: Since onset Progression Since Onset: Constant Location: : RLQ Quality: Cramping Radiation: : Back Severity: Current: Moderate Severity: Maximum: Moderate Past Medical History Past Medical History Notes: , currently 5 weeks According to previous note the patient is AB+ Past Medical History Denies Past Surgical History None reported Family History Noncontributory Smoking History Never Smoker Social History Alcohol Use: Denies alcohol use Drug Use: Denies drug use Other Social History: Good social support, , Local resident Occupation works at [employer] Ambulatory Status Independent Review of Systems Constitutional: Denies: Chills, Fever GI: Reports: Abdominal pain, Nausea Female: Reports: , Denies: Dysuria, Hematuria, Urinary frequency, Urinary urgency, Urination decreased, Urination increased, Vaginal bleeding - abnl, Vaginal discharge Complete sys rev & neg: except as marked. Physical Exam Initial Vital Signs Vital Signs (First) Date Time Temp Pulse Resp B/P Pulse Ox O2 Delivery O2 Flow Rate FiO2 02/19/17 10:24 36.4 66 18 131/89 100 Initial VS: Reviewed Head / Eyes: Atraumatic, Normocephalic, PERRL Neck: Supple, Non-tender, Full range of motion Respiratory: Breath sounds normal, Clear to auscultation, No respiratory distress Cardiovascular: Regular rate & rhythm, Heart sounds normal, Intact distal pulses Extremities: Vascular intact, Neuro intact, No swelling, No tenderness Skin: Warm, Dry, No cyanosis Neurologic: Alert, Oriented, Nonfocal General/Constitutional: Awake, Alert, Well developed Distress / Hydration: Positive: Distress moderate Appearance / Presentation: Positive: Obese, morbidly Abdomen: Soft, No guarding, No rebound Right pelvic tenderness. Interpretation & Diagnostics Lab Results Interpretation Result Diagram: 02/19/17 1350 02/19/17 1045 Test 02/19/17 10:45 02/19/17 10:57 02/19/17 13:50 White Blood Count 8.1th/mm3 (3.8-10.1) Red Blood Count 4.71mil/mm3 (3.90-5.20) Mean Corpuscular Volume 83.0fL (81-100) Mean Corpuscular Hemoglobin 27.4pg (27.0-35.0) Mean Corpuscular Hemoglobin Concent 33.0% (32.0-37.0) Red Cell Distribution Width 14.7% (12.3-15.4) Platelet Count 231bil/L (150-400) Sodium Level 136mEq/L (134-144) Potassium Level 3.9mEq/L (3.5-5.2) Chloride Level 101mEq/L (97-108) Carbon Dioxide Level 20mmol/L (18-29) Blood Urea Nitrogen 8mg/dL (6-20) Creatinine 0.53mg/dL (0.57-1.00) Estimat Glomerular Filtration Rate 200mL/min (>59) Glucose Level 91mg/dL (60-99) Calcium Level 8.7mg/dL (8.5-10.1) Total Bilirubin 0.3mg/dL (0.0-1.2) Aspartate Amino Transf (AST/SGOT) 13U/L (0-50) Alanine Aminotransferase (ALT/SGPT) 14U/L (0-32) Alkaline Phosphatase 54U/L (25-150) Total Protein 6.8g/dL (6.4-8.4) Albumin 3.8g/dL (3.4-5.0) HCG Beta Subunit [id number]/mL Urine Color Straw (YELLOW) Urine Appearance Hazy (CLEAR,HAZY) Urine pH 7.5 (5.0-8.0) Urine Specific [place] 1.010 (1.003-1.035) Urine Protein Negativemg/dL (NEG,TRACE) Urine Glucose (UA) Negativemg/dL (NEGATIVE) Urine Ketones Negativemg/dL (NEGATIVE) Urine Occult Blood Negative (NEGATIVE) Urine Nitrite Negative (NEGATIVE) Urine Bilirubin Negative (NEGATIVE) Urine Urobilinogen Normalmg/dL (NORMAL) Urine Leukocyte Esterase Moderate (NEGATIVE) Urine RBC 0-2/hpf (0-2) Urine WBC 6-10/hpf (0-5) Urine Epithelial Cells Occasional/hpf (NONE-MOD) Urine Crystals None seen (NONE SEEN) Urine Bacteria Few/hpf (NONE-FEW) Urine Hyaline Casts None/lpf (NONE) Urine Granular Casts None seen (NONE SEEN) Urine Waxy Casts None seen (NONE SEEN) Urine Red Blood Cell Casts None seen (NONE SEEN) Urine White Blood Cell Casts None seen (NONE SEEN) Urine Mucus None seen (None Seen) Urine Trichomonas None seen (NONE SEEN) Urine Yeast None (NONE SEEN) Urinalysis Comment None Urine Culture Reflexed Indicated Hemoglobin 11.9g/dL (12.0-15.6) Hematocrit 36.4% (35.0-46.0) US Focused OB US PELVIC SONOGRAM + TRANSVAGINAL SONOGRAM Impression: Abnormal position of the gestational sac positioned within the uterine fundus and slightly to the right of midline and today's study demonstrating doubling of the sac size with visualization of a yolk sac. No heart tones are seen at this time. Sequela of findings highly suspicious for interstitial/cornual . Dr. Templeton given results at [address] Sierra at 1449 hrs. 02/19/2017. 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 After the ultrasound results are confirmed LABEL CODER is called to the bedside and has evaluated the patient. Currently all of the options have been offered to the patient and LABEL CODER is waiting for a patient decision. Care will be transferred to Dr. Ying. Source of Hx: Old records Re-Evaluation/Progress #1: Time of Eval: 13:08 Re-Evaluation/Progress Note: Updated patient on the plan of care. Patient understands and agrees to the plan. All questions addressed. Re-Evaluation/Progress #2: Time of Eval: 14:21 Re-Evaluation/Progress Note: Discussed OBGYN consult and plan to be seen by Dr. Sierra. Patient understands and agrees. Consultation #1: Referral / Consult Name: Gopi Martinez RPA, RA Consulted With: On-call physician (Radiology) Call Returned at: 13:04 Note: Will review US and re-scan patient. Consultation #2: Referral / Consult Name: Carlos Sierra MD Consulted With: On-call physician (OBGYN) Call Returned at: 14:17 Instructional Design Specialist: Will see patient Counseled Regarding: Diagnosis, Lab results Discharge & Departure Shift Change Sign-Out Patient Care Transferred: Yes Discussed Complaint(s): Yes Laboratory Evaluation: Lab evaluation discussed Imaging Studies: Imaging discussed Primary Impression: High risk Discharge Condition All VS Reviewed: Yes Condition: Stable Referrals: NOPCP (PCP) Care Transferred to: Dr. Ying Care Transferred at: 15:00 Danielle Attestation Portions of this note were transcribed by Son Rizo. I, Dr. Templeton, personally performed the history, physical exam and medical decision-making; I reviewed and confirmed the accuracy of the information in the transcribed note. Signed by: Danielle Cervantes, 02/19/2017 and 15:09 Kayden Templeton DO February 19, 2017 11:27 SON RIZO February 19, 2017 11:38
[2017-02-19] MEDS ORDERED: 0.9% Sodium Chloride 1,000 ML IV ONE (13:40)
[2017-02-19] MEDS: Ondansetron 2 mg/mL 2 mL Inj IVPUSH PRN ×2 (13:50→16:49)
[2017-02-19] MEDS: HYDROmorphone 0.5 mg/0.5 mL iSecure Syringe IVPUSH PRN ×3 (13:51→16:48)
--- NOTE | 2017-02-19 14:52 | DRSVH ---
PROCEDURE: US PELVIC SONOGRAM + TRANSVAGINAL SONOGRAM INDICATIONS: 26 year-old female with pelvic pain and possible cornual . TECHNIQUE: Real-time scanning was performed of the pelvic organs, with image documentation. Additional endovagi nal scanning was necessary due to incomplete visualization of the adnexal and endometrial structures by transabdominal scanning. COMPARISON: [facility], US, US PELVIC+TRANSVAG, 02/14/2017, 9:45. FINDINGS: Transabdominal scanning: Limited scanning through the kidneys shows no hydronephrosis. No pathologi c free abdominal or pelvic fluid. Endovaginal scanning: Uterus: The gestational sac size has doubled compared to the prior examination with mean sac diamete r measures 16 mm corresponding to 6 weeks 3 days. A yolk sac is seen on today's examination. The po sition is sac is abnormal which is near the superior aspect of the myometrium and slightly to the rig ht of midline. Surrounding myometrial thickness is thin to 3-5 mm. Trace amount of nonhemorrhagic f ree fluid is seen. Ovaries: Within normal physiologic limits. Impression: Abnormal position of the gestational sac positioned within the uterine fundus and slightly to the rig ht of midline and today's study demonstrating doubling of the sac size with visualization of a yolk s ac. No pole seen at this time. Sequela of findings highly suspicious for interstitial/cornual . Dr. Templeton given results at [address] Sierra at 1449 hrs. 02/19/2017. Dictated by: Gopi Martinez [facility] Interpreted: Amparo Dan MD on 02/19/2017 at 14:47 Transcribed by: MAYRA on 02/19/2017 at 14:52 Approved by: Amparo Dan MD, PhD on 02/19/2017 at 16:35
[2017-02-19 15:47] VITALS: BP 118/68; RESP 16; O2SAT 99
[2017-02-19] MEDS ORDERED: TRAM50TA2 PO (19:02)
[2017-02-19] MEDS ORDERED: METO-301 PO (19:16)
[2017-02-19 19:22] VITALS: BP 110/65; PULSE 65; RESP 15; O2SAT 99
--- NOTE | 2017-02-19 22:10 | CONS ---
[address] [address] CONSULTATION REPORT PATIENT: KIT MACKENZIE : 1990 MR#: [id number] ADMIT: 02/19/2017 JOB ID: [id number] DATE OF SERVICE: 02/19/2017 The patient is a 26-year-old, 4, para 3 who left the emergency department with complaints of lower abdominal pelvic pain since 1 o'clock in the morning. The pain is a 6/10 in intensity. Lactated in both right and left lower quadrants. The pain is radiating to the back. The pain is crampy and achy. The patient stated that she woke up and it was 1 o'clock in the morning when the pain started. She has been seen in the emergency department on February 14 with similar symptoms. At that time, the pain was mostly right lower quadrant and today it is more bilateral. She had two ultrasounds. The right one was done on February 14 and showed gestational sac measuring 8 mm with 5 mm overlying myometrium and beta hCG at that time was 6289. Five days later the ultrasound showed gestational sac of 16 mm with a yolk sac. The beta hCG level was 13,797. There was no blood noted on ultrasound in the lower abdomen cul-de-sac area. On February 12, the beta hCG level was 3642 cc of and on February 16 it was 9464. PHYSICAL EXAMINATION: VITAL SIGNS: Temperature 36.8, pulse 67, respiratory rate 18, blood pressure 120/72. HEENT: PERRLA. Chest is clear. Normal respiratory effort. Cardiovascular: Regular rate and rhythm. No tachycardia. ABDOMEN: Obese, moderately tender in both right and left lower quadrants. There is no rebound and no rigidity. For most of them, the pain is central. PELVIC EXAM:. There is no vaginal bleeding. No abnormal vaginal discharge. No significant adnexal. LABS: WBC count 8.5, hemoglobin 12.9, hematocrit 39.1, platelet count 231. Basic metabolic panel is normal. Liver function testing is normal. ALT 13 and AST 14, alkaline phosphatase 54. ASSESSMENT AND PLAN: This is a 26-year-old, 4 para 3, with intrauterine gestation. As per ultrasound report, it is located more towards the right side of the uterus overlying myometrium measuring 5 mm. The management options were discussed with the patient. Expectant management. Will follow up closely within 48 hours in the clinic and medical treatment with methotrexate. Description was provided that because of high baby's BG level should she choose to eliminate the currently . She has to go for multidose methotrexate regimen. The patient has chosen to follow up in the clinic with repeat blood work and possible imaging in the clinic in 48 hours. Precautions were reviewed. She lives 5 minutes away from the hospital, she stays at home for the next four days. Pain management will be provided with Tylenol, tramadol will be given for breakthrough pain.
== END 2017-02-19 19:10 | disposition home or self-care (01) ==
LOC: SED 10:00
DX: O99.89 Other specified diseases and conditions complicating pregnancy, childbirth and the puerperium (principal); O09.91 Supervision of high risk pregnancy, unspecified, first trimester; R10.2 Pelvic and perineal pain; Z3A.01 Less than 8 weeks gestation of pregnancy
CPT/HCPCS: 36415; 76830; 76856; 80053; 81000; 84702; 85014; 85018; 85027; 86850; 87086; 87088; 96361; 96374; 96375; 96376; 99285; J1170; J2405; J7030

== ENCOUNTER 2017-03-09 12:15 | Emergency (ER) | payer OTHER ==
[~2017-03-09] VITALS: Ht 175.3 cm; Wt 122.7 kg
[~2017-03-09 12:15] MED LIST changes: +METO-301 PO; +TRAM50TA2 PO
[2017-03-09 12:18] VITALS: BP 145/94; PULSE 77; RESP 20; O2SAT 100
[2017-03-09] MEDS ORDERED: 0.9% Sodium Chloride 1,000 ML IV ONE (12:44)
[2017-03-09] MEDS ORDERED: Dexamethasone 10 mg/mL Inj IVPUSH ONE (12:45)
[2017-03-09] MEDS ORDERED: Haloperidol 5 mg/mL Inj IVPUSH ONE (12:45)
[2017-03-09] MEDS ORDERED: MetoCLOpramide 5 mg/mL 2 mL Inj IVPUSH ONE (12:45)
--- NOTE | 2017-03-09 12:50 | ED.REPORT ---
HPI-Headache Date of Service Mar 09, 2017 ED Provider: Rony Mahoney PA-C Gretel is a 27-year-old female with a history of migraines presenting with a headache. Patient reports a headache that began this morning with her typical aura of left arm numbness as well as "black spots and white auras" in her vision , progressed to nausea and vomiting with head pain rated 8/10. Describes pressure in the front of her head. Denies fevers, chills, unilateral weakness, thunderclap headache. Reports history of D&C procedure 2 weeks ago, denies . Patient states that she has not had a migraine for 2 years prior to this one. Attempted treatment with 800 mg ibuprofen and 1000 mg of acetaminophen shortly before presentation. Nursing Notes Stated Complaint: MIGRAINE Chief Complaint: Headache Nursing Notes Reviewed: Yes Allergies: Coded Allergies: No Known Allergies (Verified , 11/29/16) Scheduled Clindamycin (Clindamycin) 300 Mg Capsule 300 MG PO BID [id number]/Iron Fumarate/FA/Dss ( 19 Tablet) 1 Each Tablet 1 EACH PO DAILY Scheduled PRN Metoclopramide (Reglan) 10 Mg Tablet 10 MG PO QID PRN PRN For Nausea Sumatriptan Succinate (Sumatriptan Succinate) 6 Mg/0.5 Ml Cartridge 6 MG SQ Q1H PRN PRN Migraine Tramadol (Tramadol) 50 Mg Tablet 50 MG PO TID PRN PRN For Pain General Time Seen by MD: 12:38 Chief Complaint Headache Sudden in Onset?: No Past Medical History Past Medical History Notes: , currently 5 weeks According to previous note the patient is AB+ Past Medical History Denies Past Surgical History None reported Family History Noncontributory Smoking History Never Smoker Social History Alcohol Use: Denies alcohol use Drug Use: Denies drug use Other Social History: Good social support, , Local resident Occupation works at [employer] Ambulatory Status Independent Review of Systems Negative unless stated otherwise in history of present illness Physical Exam General: Well appearing, well developed, well nourished, no acute distress. Head: Atraumatic, normocephalic. Eyes: No scleral icterus or injection. No discharge. Vision grossly intact. ENT: Voice clear, hearing grossly intact. Respiratory: Regular rate and rhythm. Breath sounds present, clear to auscultation and equal bilaterally. No respiratory distress. No increased work of breathing, speaks in complete sentences. Cardiovascular: Regular rate and rhythm, without murmur, gallop or rub. No pedal edema. Gastrointestinal: Abdomen flat and non-tender without guarding or rebound. Bowel sounds normoactive. Skin: Warm and dry. Neurological: Grossly nonfocal. Psychological: Alert and oriented. Speech appropriate, linear and logical. Behavior appropriate. Initial Vital Signs Vital Signs (First) Date Time Temp Pulse Resp B/P Pulse Ox O2 Delivery O2 Flow Rate FiO2 03/09/17 12:18 36.9 77 20 145/94 100 Room Air Interpretation & Diagnostics Lab Results Interpretation Result Diagram: 03/09/17 1317 03/09/17 1317 Test 03/09/17 13:17 03/09/17 15:15 White Blood Count 10.0th/mm3 (3.8-10.1) Red Blood Count 4.74mil/mm3 (3.90-5.20) Hemoglobin 13.2g/dL (12.0-15.6) Hematocrit 40.4% (35.0-46.0) Mean Corpuscular Volume 85.2fL (81-100) Mean Corpuscular Hemoglobin 27.8pg (27.0-35.0) Mean Corpuscular Hemoglobin Concent 32.7% (32.0-37.0) Red Cell Distribution Width 14.7% (12.3-15.4) Platelet Count 287bil/L (150-400) Neutrophils (%) (Auto) 69.9% (40-74) Lymphocytes (%) (Auto) 22.5% (14-46) Monocytes (%) (Auto) 4.2% (4-12) Eosinophils (%) (Auto) 2.7% (0-5) Basophils (%) (Auto) 0.4% (0-3) Sodium Level 138mEq/L (134-144) Potassium Level 4.2mEq/L (3.5-5.2) Chloride Level 102mEq/L (97-108) Carbon Dioxide Level 24mmol/L (18-29) Blood Urea Nitrogen 11mg/dL (6-20) Creatinine 0.58mg/dL (0.57-1.00) Estimat Glomerular Filtration Rate 179mL/min (>59) Glucose Level 122mg/dL (60-99) Calcium Level 9.0mg/dL (8.5-10.1) Hold Lane Top Tube Received (Received) Hold Urine Received (Received) Re-Eval/Medical Decision Med Decision/Clinical Course 27-year-old female with a history of migraines presents with a familiar 8/10 headache that began with her usual prodrome. Denies trauma, thunderclap headache, unilateral weakness, fever or neck pain. Normal neurological examination. Patient responds well to 1 L normal saline, Haldol, diphenhydramine, dexamethasone, metoclopramide, reported her headache reduced to 1/10. Patient feels better and ready for discharge. I am reassured this is unlikely to be subarachnoid hemorrhage, stroke, mass effect, meningitis. I believe she is stable to be discharged home. Patient requests prescription for sumatriptan injection, which is provided. Advised primary care follow-up, provided emergency return precautions. Patient verbalizes understanding of and consent to plan. Re-Evaluation/Progress #1: Time of Eval: 13:44 )( Patient Status: Condition improved Re-Evaluation/Progress Note: Patient reports her headache is now a 2/10, improved from 8/10, after treatment with metoclopramide, dexamethasone, diphenhydramine, haloperidol, and approximately one third liter of NS. Re-Evaluation/Progress #2: Time of Eval: 14:37 Re-Evaluation/Progress Note: Patient reports her headache is now 1/10. Discharge & Departure Impression: Primary Impression: Migraine Migraine type: with aura Status migrainosus presence: without status migrainosus Intractability: not intractable Qualified Code: G43.109 - Migraine with aura, not intractable, without status migrainosus Disposition: Home Discharge Condition All VS Reviewed: Yes Condition: Stable Patient Instructions: Migraine Headache (ED) Additional Instructions: Evaluation for headache in the emergency department includes history, physical examination and blood tests all of which are reassuring that this is unlikely to be caused by an immediately dangerous condition such as a stroke. I believe you are stable and safe to be discharged. I will provide you with a prescription for sumatriptan at your request. Follow-up with your primary care provider early next week. Return to the emergency department for any new or worsening symptoms including recurrent severe headache, neurological changes, fever. Referrals: Brea Aguilar EDSupervising Provider for APC: Abebe Ying MD copies to: Brea Aguilar Seth PA-C Mar 09, 2017 12:50
[2017-03-09 13:22] LABS: BASOPHILS % (AUTO) 0.4 % (0-3); EOSINOPHILS % (AUTO) 2.7 % (0-5); MONOCYTES % (AUTO) 4.2 % (4-12); Mean Corpuscular Hemoglobin 27.8 pg (27.0-35.0); Mean Corpuscular Volume 85.2 fL (81-100); NEUTROPHILS % (AUTO) 69.9 % (40-74); Platelet Count 287 bil/L (150-400)
[2017-03-09 14:50] VITALS: BP 126/64; PULSE 79; RESP 14; O2SAT 96
[2017-03-09] MEDS ORDERED: SUMA6KIT2 SQ (15:11)
[2017-03-09 15:17] VITALS: BP 126/64; PULSE 79; RESP 14; O2SAT 96
== END 2017-03-09 15:18 | disposition home or self-care (01) ==
LOC: SED 12:15
DX: G43.109 Migraine with aura, not intractable, without status migrainosus (principal); Z98.890 Other specified postprocedural states
CPT/HCPCS: 36415; 80048; 85025; 96361; 96374; 96375; 99284; J1100; J1200; J1630; J2765; J7030

== ENCOUNTER 2017-03-17 17:57 | Emergency (ER) | payer OTHER ==
[~2017-03-17] VITALS: Ht 175.3 cm; Wt 122.7 kg
[~2017-03-17 17:57] MED LIST changes: +SUMA6KIT2 SQ
[2017-03-17 18:00] VITALS: BP 144/88; PULSE 92; RESP 24; O2SAT 100
[2017-03-17] MEDS ORDERED: Ondansetron 2 mg/mL 2 mL Inj ONE ×3 (18:16→22:18)
--- NOTE | 2017-03-17 18:35 | ED.REPORT ---
HPI-Abd Pain F Under 40 Date of Service Mar 17, 2017 ED Provider: Sheng Campos DO Patient is a 27 year old female who presents to the ED complaining of right upper quadrant abdominal pain onset 30 minutes prior to arrival. Associated symptoms include pain that radiates into her back and shortness of breath. She denies nausea, vomiting or fever. The patient reports that the pain started 30 minutes after eating and has gotten progressively worse. Nursing Notes Stated Complaint: ABDOMINAL PAIN Chief Complaint: Female Abdominal Pain Nursing Notes Reviewed: Yes Allergies: Coded Allergies: No Known Allergies (Verified , 11/29/16) Scheduled Clindamycin (Clindamycin) 300 Mg Capsule 300 MG PO BID [id number]/Iron Fumarate/FA/Dss ( 19 Tablet) 1 Each Tablet 1 EACH PO DAILY Scheduled PRN Metoclopramide (Reglan) 10 Mg Tablet 10 MG PO QID PRN PRN For Nausea Sumatriptan Succinate (Sumatriptan Succinate) 6 Mg/0.5 Ml Cartridge 6 MG SQ Q1H PRN PRN Migraine Tramadol (Tramadol) 50 Mg Tablet 50 MG PO TID PRN PRN For Pain General Time Seen by MD: 18:35 Chief Complaint Abdominal pain Hx Obtained From: Patient Arrived By: Walk-in Sudden in Onset?: Yes Onset Occurred: 46 - 59 minutes ago Context of Onset: Eating Symptom Duration: Since onset Progression since Onset: Gradually worsening Location: : RUQ Quality: Painful Radiation: : Back Severity: Current: Moderate Associated with: Reports: Shortness of breath, Denies: Nausea, Vomiting Similar Sx Previous: No Past Medical History Past Medical History Notes: According to previous note the patient is AB+ Past Medical History Denies Past Surgical History None reported Family History Noncontributory Smoking History Never Smoker Social History Alcohol Use: Denies alcohol use Drug Use: Denies drug use Other Social History: Good social support, , Local resident Occupation works at [employer] Ambulatory Status Independent Review of Systems Constitutional: Denies: Chills, Fever Respiratory: Reports: Shortness of breath, Denies: Non-productive cough, Wheezing Cardiovascular: Denies: Chest pain GI: Reports: Abdominal pain, Denies: Constipation, Diarrhea, Nausea, Vomiting Female: Denies: Dysuria Musculoskeletal: Reports: Back pain Complete sys rev & neg: except as marked. Physical Exam Initial Vital Signs Vital Signs (First) Date Time Temp Pulse Resp B/P Pulse Ox O2 Delivery O2 Flow Rate FiO2 03/17/17 18:00 36.4 92 24 144/88 100 Room Air Initial VS: Reviewed General/Constitutional: Awake, Alert Distress / Hydration: Positive: Distress moderate Respiratory / Chest: Atraumatic, Breath sounds NL, Breath sounds = bilat, No respiratory distress Cardiovascular: Heart rate NL, Regular rhythm, Heart sounds NL Abdomen: Atraumatic, Soft Tenderness/Guarding/Rebound: Positive: Tender RUQ... Back: Atraumatic, Non-tender Head / Eyes: Atraumatic, Normocephalic, PERRL, EOMI Skin: Atraumatic, Color NL, No rash, Warm, Dry Neurologic: Oriented X3, Speech NL, No motor deficits, No sensory deficits Neck: Atraumatic, Supple, Full range of motion Upper Extremity / MS: Atraumatic, Full range of motion Psychiatric: Affect NL, Mood NL Interpretation & Diagnostics Interpretation & Diagnostics: ABDOMEN US: IMPRESSION: 1. Distended gallbladder without evidence of cholelithiasis or cholecystitis. If there is clinical concern for gallbladder dysfunction, further evaluation may be obtained with a HIDA scan. 2. Appendix not discretely identified sonographically. 3. Increased hepatic echogenicity compatible with steatosis. Dictated by: Ariel Tran M.D. on 03/17/2017 at 22:49 Approved by: Ariel Tran M.D. on 03/17/2017 at 22:52 Lab Results Interpretation Result Diagram: 03/17/17 1814 03/17/17 1814 Test 03/17/17 18:14 03/17/17 22:39 White Blood Count 12.4th/mm3 (3.8-10.1) Red Blood Count 4.58mil/mm3 (3.90-5.20) Hemoglobin 12.8g/dL (12.0-15.6) Hematocrit 39.0% (35.0-46.0) Mean Corpuscular Volume 85.2fL (81-100) Mean Corpuscular Hemoglobin 27.9pg (27.0-35.0) Mean Corpuscular Hemoglobin Concent 32.8% (32.0-37.0) Red Cell Distribution Width 14.4% (12.3-15.4) Platelet Count 307bil/L (150-400) Neutrophils (%) (Auto) 60.0% (40-74) Lymphocytes (%) (Auto) 29.8% (14-46) Monocytes (%) (Auto) 4.7% (4-12) Eosinophils (%) (Auto) 4.9% (0-5) Basophils (%) (Auto) 0.4% (0-3) Sodium Level 135mEq/L (134-144) Potassium Level 4.2mEq/L (3.5-5.2) Chloride Level 101mEq/L (97-108) Carbon Dioxide Level 17mmol/L (18-29) Blood Urea Nitrogen 11mg/dL (6-20) Creatinine 0.67mg/dL (0.57-1.00) Estimat Glomerular Filtration Rate 151mL/min (>59) Glucose Level 139mg/dL (60-99) Calcium Level 9.3mg/dL (8.5-10.1) Magnesium Level 1.9mg/dL (1.6-2.6) Total Bilirubin 0.2mg/dL (0.0-1.2) Aspartate Amino Transf (AST/SGOT) 21U/L (0-50) Alanine Aminotransferase (ALT/SGPT) 17U/L (0-32) Alkaline Phosphatase 61U/L (25-150) Total Protein 7.8g/dL (6.4-8.4) Albumin 3.8g/dL (3.4-5.0) Lipase 41U/L (13-60) Hold Lane Top Tube Received (Received) Urine Color Yellow (YELLOW) Urine Appearance Cloudy (CLEAR,HAZY) Urine pH 7.5 (5.0-8.0) Urine Specific [place] 1.015 (1.003-1.035) Urine Protein 30mg/dL (NEG,TRACE) Urine Glucose (UA) Negativemg/dL (NEGATIVE) Urine Ketones Negativemg/dL (NEGATIVE) Urine Occult Blood Large (NEGATIVE) Urine Nitrite Negative (NEGATIVE) Urine Bilirubin Negative (NEGATIVE) Urine Urobilinogen Normalmg/dL (NORMAL) Urine Leukocyte Esterase Negative (NEGATIVE) Urine RBC >50/hpf (0-2) Urine WBC 6-10/hpf (0-5) Urine Epithelial Cells Many/hpf (NONE-MOD) Urine Crystals Amorphous phosphates Urine Bacteria None/hpf (NONE-FEW) Urine Hyaline Casts None/lpf (NONE) Urine Granular Casts None seen (NONE SEEN) Urine Waxy Casts None seen (NONE SEEN) Urine Red Blood Cell Casts None seen (NONE SEEN) Urine White Blood Cell Casts None seen (NONE SEEN) Urine Mucus None seen (None Seen) Urine Trichomonas None seen (NONE SEEN) Urine Yeast None (NONE SEEN) Urine Culture Reflexed Indicated Hold Urine Received (Received) CT Abd / Pelvis Interpretation CONCLUSION: 1. Normal appendix. No free air, bowel obstruction or mesenteric inflammation. 2. Mild nonspecific gallbladder distention. CBD is upper limits normal, borderline 6-7 millimeter diameter. No calcified stones or pericholecystic inflammation. A negative ultrasound is reported. at 2330 Re-Eval/Medical Decision Med Decision/Clinical Course Good pain control with Toradol and a combination of Dilaudid. CT scan of her abdomen was reassuring. Ultrasound also reassuring. I suspect she may have biliary colic are passed a stone. Either way we will refer her to surgery. Short course of opiates prescribed for pain. No biochemical or physical examination evidence of cholecystitis. Anabolic felt to be not indicated. Close outpatient follow-up recommended. Routine opiate warnings given. Re-Evaluation/Progress #1: Time of Eval: 21:19 Patient Status: Mild relief Re-Evaluation/Progress #2: Time of Eval: 22:05 Re-Evaluation/Progress Note: Discussed plan for CT Re-Evaluation/Progress #3: Time of Eval: 00:27 Re-Evaluation/Progress Note: Discussed CT results and plan for discharge. The patient understands and agrees to the plan. All questions were addressed. Counseled Regarding: Diagnosis, Lab results, Need for follow-up, When/why to return to ED Discharge & Departure Primary Impression: Abdominal pain Abdominal location: right upper quadrant Qualified Code: R10.11 - Right upper quadrant pain Disposition: Home Discharge Condition All VS Reviewed: Yes Condition: Stable Patient Instructions: Acute Abdominal Pain (ED) Additional Instructions: Your ultrasound showed that you have a distended gallbladder. It did not show any signs of gallstones. You may have passed a gallstone while you were here. You can take 1-2 [place] every 6 hours for pain. Do not drink alcohol or drive. Do not combine the pain medication with Acetaminophen. You can take 1 Zofran every 8 hours for nausea. Call your primary care physician on Saturday for a follow up appointment. You can also follow up with the surgical clinic that is attached. Please return to the emergency department if you develop any new or concerning symptoms. Referrals: Jovan Meadows MD [facility] Scribe Attestation Portions of this note were transcribed by Izabel Cho. I, Dr. Campos personally performed the history, physical exam and medical decision-making; I reviewed and confirmed the accuracy of the information in the transcribed note. Signed by: Izabel Santos, 03/17/17 and 1908 copies to: Jovan Meadows MD; [facility] Sheng Campos DO Mar 17, 2017 18:35 Halley Cho Mar 17, 2017 19:01
[2017-03-17] MEDS: HYDROmorphone 0.5 mg/0.5 mL iSecure Syringe IVPUSH PRN ×4 (18:54→20:24)
[2017-03-17 19:17] LABS: BASOPHILS % (AUTO) 0.4 % (0-3); EOSINOPHILS % (AUTO) 4.9 % (0-5); MONOCYTES % (AUTO) 4.7 % (4-12); Mean Corpuscular Hemoglobin 27.9 pg (27.0-35.0); Mean Corpuscular Volume 85.2 fL (81-100); Platelet Count 307 bil/L (150-400)
[2017-03-17 19:27] LABS: Magnesium 1.9 mg/dL (1.6-2.6)
[2017-03-17] MEDS ORDERED: HYDROmorphone 1 mg/mL Inj IVPUSH ONE (21:20)
[2017-03-17] MEDS ORDERED: Ondansetron 2 mg/mL 2 mL Inj IVPUSH PRN (22:45)
[2017-03-17 22:48] VITALS: BP 118/78; PULSE 81; RESP 16; O2SAT 99
--- NOTE | 2017-03-17 22:53 | DRSVH ---
PROCEDURE: US ABDOMEN ([id number]) INDICATIONS: RUQ pain TECHNIQUE: Real-time scanning was performed of the abdominal and retroperitoneal organs, with image documentatio n. COMPARISON: None. FINDINGS: Liver: Liver appears enlarged with increased hepatic echogenicity consistent with fatty infiltration . Gallbladder: The gallbladder is distended measuring up to approximately 10 cm. No gallstones, wall t hickening, or pericholecystic fluid. Biliary ducts: Intrahepatic bile ducts are non-dilated. Extrahepatic bile duct caliber measures tae roximately 6 mm. Normal is 6-7 mm or less in diameter, or 10 mm or less post-cholecystectomy. Pancreas: Visualized portions of the pancreas are sonographically normal. Spleen: Spleen is normal in size and homogeneous in echotexture. Kidneys: Right kidney measures 11.6 cm long; left kidney measures 12.8 cm long. No hydronephrosis. Aorta: Visualized aorta is normal in caliber at less than 3 cm. Iliacs: Proximal common iliac arteries are normal in caliber at less than 2.5 cm. IVC: Intrahepatic inferior vena cava is patent. Miscellaneous: No free abdominal fluid. The appendix was not discretely identified. IMPRESSION: 1. Distended gallbladder without evidence of cholelithiasis or cholecystitis. If there is clinical concern for gallbladder dysfunction, further evaluation may be obtained with a HIDA scan. 2. Appendix not discretely identified sonographically. 3. Increased hepatic echogenicity compatible with steatosis. Dictated by: Ariel Tran M.D. on 03/17/2017 at 22:49 Approved by: Ariel Tran M.D. on 03/17/2017 at 22:52
[2017-03-17 23:10] LABS: APPEARANCE,URINE CLOUDY (CLEAR,HAZY); COLOR,URINE YELLOW (YELLOW); OCCULT BLOOD,URINE LARGE (NEGATIVE); PH,URINE 7.5 (5.0-8.0); UROBILINOGEN,URINE NORMAL (NORMAL)
[2017-03-18] MEDS ORDERED: _Ondansetron ODT 4 mg Tablet PO PRN (00:15)
[2017-03-18] MEDS ORDERED: _HYDROcodone/APAP 5-325 mg Tablet PO PRN (00:15)
[2017-03-18 00:44] VITALS: BP 100/63; PULSE 67; RESP 16; O2SAT 97
--- NOTE | 2017-03-18 08:14 | DRSVH ---
PROCEDURE: CT ABDOMEN AND PELVIS WITH CONTRAST ([id number]) INDICATIONS: ruq pain, leukocytosis, neg US TECHNIQUE: After the administration of oral and intravenous contrast, 5 mm thick sections acquired from the diap hragms to the symphysis. 5 mm thick coronal and sagittal reformats were performed. For radiation do se reduction, the following was used: automated exposure control, adjustment of mA and/or kV accordi ng to patient size. COMPARISON: [facility], US, US ABDOMEN, 03/17/2017, 20:44. FINDINGS: Image quality: Diagnostic. ABDOMEN: Lung bases: Lung bases are clear. Heart size is normal. Solid organs: Liver and spleen are normal in size and enhancement. The gallbladder is prominent in size. The common bile duct is enlarged for the patient's age, measuring up to 8 mm in diameter. Mil d intrahepatic biliary dilatation is present. Pancreas enhances normally. No adrenal nodules. Kidn eys are normal in size and enhancement, without hydronephrosis. Peritoneum and bowel: Stomach, small bowel, and colon loops are normal in caliber and wall thickness . No free fluid or air. No loculated fluid collections are identified. The appendix is well-visual ized and normal in size. A small fat-containing periumbilical hernia is incidentally noted. Nodes and vessels: No retroperitoneal or mesenteric adenopathy. Aorta and inferior vena cava are no rmal in caliber. Bones: Image osseous structures are age-appropriate. No acute fractures or suspicious osseous lesion s are evident. PELVIS: Genitourinary: Bladder wall thickness is normal. Miscellaneous: No inguinal hernias or adenopathy. No free fluid, loculated fluid collection or free air is evident. Bones: No suspicious bony lesions. No vertebral body compression fractures. IMPRESSION: 1. Enlarged common bile duct and prominence of the gallbladder is nonspecific. However, in the sett ing of elevated liver function tests, this appearance may be related to choledocholithiasis. MRCP wo uld be helpful to evaluate for choledocholithiasis. 2. Normal appendix. No bowel obstruction. Note: The preliminary report provided by [facility] is concordant with the final report. Dictated by: Scout Webb M.D. on 03/18/2017 at 8:09 Approved by: Scout Webb M.D. on 03/18/2017 at 8:13
== END 2017-03-18 00:45 | disposition home or self-care (01) ==
LOC: SED 17:57
DX: R10.11 Right upper quadrant pain (principal); M54.9 Dorsalgia, unspecified; R06.02 Shortness of breath; K82.8 Other specified diseases of gallbladder
CPT/HCPCS: 36415; 74177; 76700; 80053; 81000; 81025; 83690; 83735; 85025; 87086; 87088; 96374; 96375; 96376; 99285; J1170; J1885; J2405; Q9967

== ENCOUNTER 2017-03-20 20:17 | Observation (INO) | payer OTHER ==
[~2017-03-20] VITALS: Ht 175.3 cm; Wt 120.6 kg
[2017-03-20 20:18] VITALS: BP 136/96; PULSE 86; RESP 16; O2SAT 99
--- NOTE | 2017-03-20 20:45 | ED.REPORT ---
HPI-General Illness Date of Service Mar 20, 2017 ED Provider: Jm Pearson MD The patient is a 27 year old female who presents to the ED due to 2 episodes of sharp, RUQ pain. She had one episode on Saturday after eating and another today. Associated symptoms include nausea, vomiting, and increased pain with inhalation. She reported to [facility] on and a CT and US showed a slightly inflamed gallbladder with mildly elevated common bile duct but no evidence of cholelithiasis. She was referred to a surgeon has an appointment on the of this month. Yesterday, she had an appointment with Dr. Brea Aguilar and was told not much could be done for her symptoms until her appointment with surgery in one week. She has been eating a low fat diet as advised. There is nothing that makes the pain better or worse. Her last BM was this morning. She denies vaginal discharge, or any hx of pelvic inflammatory disease. Nursing Notes Stated Complaint: PAIN,SOB Chief Complaint: Female Abdominal Pain Nursing Notes Reviewed: Yes Allergies: Coded Allergies: No Known Allergies (Verified , 03/20/17) Scheduled PRN Ibuprofen (Ibuprofen) 200 Mg Capsule 200-400 MG PO QID PRN PRN For Pain Ondansetron ODT (Ondansetron ODT) 4 Mg Tab.rapdis 4 MG PO Q8H PRN PRN For Nausea /Vomiting Oxycodone HCl/Acetaminophen 5-325 (Endocet 5-325) 1 Each Tablet 1-2 TABLET PO Q6H PRN PRN For Pain Sumatriptan Succinate (Sumatriptan Succinate) 50 Mg Tablet 50 MG PO BID PRN PRN Headache AT ONSET OF MIGRAINE. MAY REPEAT IN 2 HRS IF NEEDED. General Time Seen by MD: 20:23 Chief Complaint Abdominal pain Hx Obtained From: Patient Arrived By: Walk-in Sudden in Onset?: Yes Onset Occurred: 3 days ago Symptom Duration: Since onset Location: : Abdomen Quality: Painful Radiation: : Does not radiate Severity: Current: Moderate Recent Healthcare: Recent doctor visit Similar Sx Previous: Yes Past Medical History Past Medical History Notes: According to previous note the patient is AB+ Past Medical History Denies Past Surgical History None reported Family History Noncontributory Smoking History Never Smoker Social History Alcohol Use: Denies alcohol use Drug Use: Denies drug use Other Social History: Good social support, , Local resident Occupation works at [employer] Ambulatory Status Independent Review of Systems Full Review of Systems Constitutional: Denies: Chills, Fever Respiratory: Denies: Non-productive cough, Shortness of breath Cardiovascular: Denies: Chest pain GI: Reports: Abdominal pain, Nausea, Vomiting, Denies: Constipation, Diarrhea, Hematemesis, Hematochezia Female: Denies: Hematuria, Incontinence, Pelvic pain, Vaginal bleeding - abnl, Vaginal discharge Complete sys rev & neg: except as marked. Physical Exam Vital Signs Vital Signs Date Time Temp Pulse Resp B/P Pulse Ox O2 Delivery O2 Flow Rate FiO2 03/20/17 21:35 76 20 114/62 100 Room Air 03/20/17 20:18 36.4 86 16 136/96 99 Room Air Initial VS: Reviewed General/Constitutional: Awake, Alert, Cooperative Head / Eyes: Atraumatic, Normocephalic, PERRL, EOMI ENT: Atraumatic, Airway patent, Mucous membranes moist Respiratory / Chest: Atraumatic, Breath sounds NL, Breath sounds = bilat, No respiratory distress Cardiovascular: Heart rate NL, Regular rhythm, Heart sounds NL Abdomen: BS normoactive Tenderness/Guarding/Rebound: Positive: Tender RUQ... (Mild with inspiration) tolerates palpation in all 4 quadrants Back: Atraumatic, Inspection NL, Full range of motion, Non-tender Upper Extremities Upper Extremity / MS: Atraumatic, Inspection NL, Full range of motion, No deformity Lower Extremity / Pelvis / MS: Atraumatic, Inspection NL, Full range of motion , No deformity Skin: Atraumatic, Warm, Dry Neurologic: Oriented X3, Speech NL, No motor deficits Interpretation & Diagnostics Lab Results Interpretation Result Diagram: 03/20/17 2100 03/20/17 2100 Test 03/20/17 21:00 03/20/17 22:38 White Blood Count 12.0th/mm3 (3.8-10.1) Red Blood Count 4.71mil/mm3 (3.90-5.20) Hemoglobin 13.1g/dL (12.0-15.6) Hematocrit 40.1% (35.0-46.0) Mean Corpuscular Volume 85.1fL (81-100) Mean Corpuscular Hemoglobin 27.8pg (27.0-35.0) Mean Corpuscular Hemoglobin Concent 32.7% (32.0-37.0) Red Cell Distribution Width 14.0% (12.3-15.4) Platelet Count 292bil/L (150-400) Neutrophils (%) (Auto) 57.4% (40-74) Lymphocytes (%) (Auto) 29.9% (14-46) Monocytes (%) (Auto) 7.2% (4-12) Eosinophils (%) (Auto) 4.7% (0-5) Basophils (%) (Auto) 0.6% (0-3) Sodium Level 137mEq/L (134-144) Potassium Level 3.6mEq/L (3.5-5.2) Chloride Level 102mEq/L (97-108) Carbon Dioxide Level 22mmol/L (18-29) Blood Urea Nitrogen 12mg/dL (6-20) Creatinine 0.63mg/dL (0.57-1.00) Estimat Glomerular Filtration Rate 162mL/min (>59) Glucose Level 97mg/dL (60-99) Calcium Level 8.9mg/dL (8.5-10.1) Total Bilirubin 0.3mg/dL (0.0-1.2) Aspartate Amino Transf (AST/SGOT) 68U/L (0-50) Alanine Aminotransferase (ALT/SGPT) 57U/L (0-32) Alkaline Phosphatase 77U/L (25-150) Total Protein 8.0g/dL (6.4-8.4) Albumin 4.1g/dL (3.4-5.0) Lipase 45U/L (13-60) Procalcitonin 0.03ng/mL (0.00-0.08) Human Chorionic Gonadotropin, Qual 1.4 (Negative) Hold Lane Top Tube Received (Received) Urine Color Yellow (YELLOW) Urine Appearance Clear (CLEAR,HAZY) Urine pH 6.5 (5.0-8.0) Urine Specific [place] 1.019 (1.003-1.035) Urine Protein Negativemg/dL (NEG,TRACE) Urine Glucose (UA) Negativemg/dL (NEGATIVE) Urine Ketones Negativemg/dL (NEGATIVE) Urine Occult Blood Negative (NEGATIVE) Urine Nitrite Negative (NEGATIVE) Urine Bilirubin Negative (NEGATIVE) Urine Urobilinogen Normalmg/dL (NORMAL) Urine Leukocyte Esterase Negative (NEGATIVE) Urine RBC 0-2/hpf (0-2) Urine WBC 0-5/hpf (0-5) Urine Epithelial Cells Many/hpf (NONE-MOD) Urine Crystals None seen (NONE SEEN) Urine Bacteria Few/hpf (NONE-FEW) Urine Hyaline Casts None/lpf (NONE) Urine Granular Casts None seen (NONE SEEN) Urine Waxy Casts None seen (NONE SEEN) Urine Red Blood Cell Casts None seen (NONE SEEN) Urine White Blood Cell Casts None seen (NONE SEEN) Urine Mucus None seen (None Seen) Urine Trichomonas None seen (NONE SEEN) Urine Yeast None (NONE SEEN) Urinalysis Comment None Urine Culture Reflexed Not indicated Re-Eval/Medical Decision Med Decision/Clinical Course Patient is a 27-year-old female who presents with several episodes of severe right upper quadrant pain. She was recently seen and evaluated in this emergency department during which time laboratory studies were relatively unremarkable. She had a CT scan as well as right upper quadrant ultrasound which demonstrated a somewhat dilated and inflamed gallbladder with moderately enlarged common bile duct of 6.5 mm though there is no evidence of cholelithiasis. She has been referred to surgery though presents to the emergency room today with worsening symptoms. Here in the emergency department the patient was treated with Zofran, IV fluids and hydromorphone for pain. She reported marked improvement in her symptoms. Laboratory studies were notable as below: CBC unremarkable leukocytosis 12 CMP notable for mildly elevated transaminases in the 50s to 60s, new from prior lipase within normal limits Total bilirubin 0.3 UA unremarkable Upon examination the patient does have significant tenderness in the right upper quadrant. Moreover, her transaminases are slightly elevated and although not impressively so this is new from prior. However, recent imaging studies in the emergency department though not profoundly concerning were abnormal with dilation of the common bile duct. Therefore, I discussed the patient with Dr. Amparo De Souza (general surgery) and we opted to proceed with repeat right upper quadrant ultrasound which demonstrated a dilated gallbladder with sludge present and a dilated common bile duct of 7.5 mm. These findings were discussed with gastroenterology Dr. Montero. We opted to admit the patient for MRCP and further consultation with gastroenterology and general surgery pending the results of the studies. She was discussed with hospitalist Dr. Regalado and transferred in stable condition. Plan for initiation of antibiotics per hospitalist. Consultation #1: Referral / Consult Name: Amparo De Souza MD Consulted With: Surgeon Call Returned at: 23:26 Trauma Doctor: Agrees with eval, Agrees with plan Note: Case discussed. Dr. De Souza recommends repeat US. If negative, plan for admission and HIDAscan. Consultation #2: Referral / Consult Name: Maximino Beltran MD Consulted With: Hospitalist Call Returned at: 00:02 Trauma Doctor: Agrees with eval, Agrees with plan Note: Case discussed. Dr. Beltran recommends MRCP and admission. Consultation #3: Referral / Consult Name: Tres Hernandez MD Consulted With: Hospitalist Call Returned at: 00:11 Trauma Doctor: Agrees with eval, Agrees with plan, Accepts admit Note: Case discussed. Dr. Hernandez accepts admit. Counseled Regarding: Diagnosis, Lab results, Need for admission Discharge & Departure Primary Impression: Abdominal pain Abdominal location: right upper quadrant Qualified Code: R10.11 - Right upper quadrant pain Additional Impressions: Elevated transaminase level Common bile duct (CBD) obstruction Right upper quadrant pain Leukocytosis Leukocytosis type: unspecified Qualified Code: D72.829 - Elevated white blood cell count, unspecified Disposition: ADMITTED TO HOSPITAL Discharge Condition All VS Reviewed: Yes Condition: Stable Referrals: Brea Aguilar (PCP) Sandeep Attestation Portion of this note were transcribed by Rose Price. I, Dr. Pearson, personally performed the history, physical exam, and medical decision-making: I reviewed and confirmed the accuracy for the information in the transcribed note. Signed by: sandeep Khan, 03/20/17 2300 copies to: Brea Aguilar Beck O MD Mar 20, 2017 20:45 Rose Price Mar 20, 2017 23:21
[2017-03-20] MEDS ORDERED: 0.9% Sodium Chloride 1,000 ML IV ONE (20:47)
[2017-03-20] MEDS ORDERED: Ondansetron 2 mg/mL 2 mL Inj IVPUSH ONE ×2 (20:50→23:40)
[2017-03-20] MEDS: HYDROmorphone 0.5 mg/0.5 mL iSecure Syringe IVPUSH PRN ×3 (21:14→23:36)
[2017-03-20 21:15] LABS: BASOPHILS % (AUTO) 0.6 % (0-3); EOSINOPHILS % (AUTO) 4.7 % (0-5); MONOCYTES % (AUTO) 7.2 % (4-12); Mean Corpuscular Hemoglobin 27.8 pg (27.0-35.0); Mean Corpuscular Volume 85.1 fL (81-100); NEUTROPHILS % (AUTO) 57.4 % (40-74); Platelet Count 292 bil/L (150-400)
[2017-03-20 21:35] VITALS: BP 114/62; PULSE 76; RESP 20; O2SAT 100
[2017-03-20 22:56] LABS: APPEARANCE,URINE CLEAR (CLEAR,HAZY); COLOR,URINE YELLOW (YELLOW); OCCULT BLOOD,URINE NEGATIVE (NEGATIVE); PH,URINE 6.5 (5.0-8.0); UROBILINOGEN,URINE NORMAL (NORMAL)
[2017-03-20] MEDS ORDERED: IBUP200C PO (23:59)
[2017-03-20] MEDS ORDERED: ONDA4TAB12 PO (23:59)
[2017-03-20] MEDS ORDERED: SUMA50TA2 PO (23:59)
[2017-03-20] MEDS ORDERED: OXYC-407 PO (23:59)
[2017-03-21] VITALS (14 sets, daily range): BP systolic 94–158; BP diastolic 60–91; PULSE 63–76; RESP 14–22; O2SAT 94–100
[2017-03-21] MEDS ORDERED: Glycopyrrolate 0.2 MG/ML 1mL Inj ONE (00:35)
[2017-03-21] MEDS ORDERED: Lidocaine PF 1% 30 mL Inj ONE (00:35)
[2017-03-21] MEDS ORDERED: Ketamine 10 mg/mL 20 mL Inj ONE (00:35)
[2017-03-21] MEDS ORDERED: Ondansetron 2 mg/mL 2 mL Inj ONE (00:35)
[2017-03-21] MEDS ORDERED: Succinylcholine Chloride 20 mg/mL 5 mL Inj ONE (00:35)
[2017-03-21] MEDS ORDERED: Dexamethasone 4 mg/mL Inj ONE (00:35)
[2017-03-21] MEDS ORDERED: fentaNYL-PF 50 mCg/mL 2 mL Inj ONE (00:35)
[2017-03-21] MEDS ORDERED: Phenylephrine/NS-PF 100 mCg/mL 5 mL Syringe IVPUSH ONE (00:35)
[2017-03-21] MEDS ORDERED: Neostigmine 1 mg/mL 10 mL Inj ONE (00:35)
[2017-03-21] MEDS ORDERED: Propofol 10,000 mCg/mL 20 mL Inj ONE (00:35)
[2017-03-21] MEDS ORDERED: Alum-Mag Hydrox-Simeth 30 mL Suspension PO PRN ×2 (01:20)
[2017-03-21] MEDS ORDERED: Ondansetron 2 mg/mL 2 mL Inj IVPUSH PRN ×2 (01:20→10:50)
[2017-03-21] MEDS ORDERED: Polyethylene Glycol (PEG) 17 Gm Powder PO PRN (01:20)
[2017-03-21] MEDS ORDERED: Piperacillin-Tazo 3.375 Gm Inj 3.375 GM in Dextrose 5% Minibag Plus 50 ML IV ONE (01:30)
[2017-03-21] MEDS: 0.9% Sodium Chloride 1,000 ML IV SCH ×3 (02:04→21:18)
--- NOTE | 2017-03-21 02:12 | NUR ---
Admit received report from ED RN Mary Izaguirre at 0115. [facility] approximately at 0128 via stretcher and accompanied by spouse. pt ambulated on arrival to transfer self to bed. A&O X3. Rated RUQ pain 3/10 which is tolerable. denies Nausea at this time. VS WNL. pt on RA with SPO2 100%. NS infusing 100ml/her. med rec. was done in the ED, and other admission is done by this RN. Will continue to monitor and provide care.
--- NOTE | 2017-03-21 03:35 | PCM.HPMED ---
Subjective Date of Service Mar 21, 2017 Primary Provider: Admitting Physician: Tres Hernandez MD Primary Care Physician: Brea Aguilar Attending Physician: Tres Hernandez MD Chief Complaint: Right upper quadrant abdominal pain History of Present Illness: 27-year-old woman presented to the emergency department after experiencing episodes of sharp right upper quadrant pain. She had an episode earlier this week, Saturday, after eating at a barbecue and came to the [facility] ED at that time for evaluation. She states that she hasd associated nausea vomiting, and increased pain with inhalation particularly with referral to the right upper quadrant. CT scan and ultrasound from Saturday's visit (4 days ago) showed a slightly inflamed gallbladder and mildly elevated common bile duct without evidence of cholelithiasis. She followed up with her primary care doctor, Dr. Brea Aguilar, and she was given a low-fat diet to follow. Today she says the pain returned, "taking my breath away." At time of encounter for admission she denies any chest pain, shortness of breath, lightheadedness or dizziness, no fevers chills, no cold sweats, no dysuria, no constipation, no weakness in her arms hands feet or legs, no rashes. On presentation temperature 36.4, heart rate 86 respiratory rate 16, blood pressure 136/96, 99% on room air WBC 12.0, , AST 68, ALT 57, Procalcitonin 0.03 HCG 1.4 Right upper quadrant ultrasound which demonstrated a dilated gallbladder with sludge present and a dilated common bile duct of 7.5 mm. The case was discussed with manager utility corporation officer, as well as general surgeon to recommended admission for further evaluation, starting with an MRCP. Review of Systems: A comprehensive review of systems was conducted with the patient and found to be negative except as above in the history of presenting illness. Allergies Coded Allergies: No Known Allergies (Verified , 03/20/17) Home Medications Denies taking regular medications at home PMH Denies any other medical problems Surgical History Denies any surgeries Family History Father alive with diabetes type II, hyperlipidemia, hypertension Mother reportedly has diabetes type II Social History Occupation: works at [employer] Hx Alcohol Use: Yes (once a month) Alcoholic Drinks Per Day: 2 glassess of wine in once a month Hx Substance Use: No Hx Tobacco Use: No Smoking Status: Never Smoker Exam Vital Signs Vital Sign - Last Date Time Temp Pulse Resp B/P Pulse Ox O2 Delivery O2 Flow Rate FiO2 03/21/17 01:40 36.8 76 16 114/64 94 Room Air Intake and Output 03/20/17 03/20/17 03/21/17 Cumulative From/Thru 15:00 23:00 07:00 03/20/17 20:18 - 03/21/17 02:26 Intake Total 999 ml 999 ml Balance 999 ml 999 ml Intake IV Total 999 ml 999 ml Exam General: Laying in bed, no apparent distress. Pleasant affect HEENT: Normocephalic, atraumatic, EOMI grossly, this membranes moist neck supple without lymphadenopathy. Trachea midline, conjunctiva pink. Cardiovascular: Regular rate and rhythm, no clicks murmurs rubs, peripheral pulses 2/4 equal bilaterally Pulmonary: Clear to auscultation bilaterally, no W/R/R. Abdominal: Soft to palpation, bowel sounds present 4, no hepatosplenomegaly. Negative rebound. Equivocal Mcnally's, as patient had received pain medication. Extremities: No edema appreciated. No tenderness, asymmetry. Neuro: Neurologically grossly intact, strength is equal bilaterally upper and lower extremities. MSK: Able to move extremities on their own volition, strength 5 out of 5 equal bilaterally to upper and lower extremities. Lab and Diagnostics Result Diagram: 03/20/17209903/20/17 2100 X-Rays, CTs and MRIs Right upper quadrant ultrasound which demonstrated a dilated gallbladder with sludge present and a dilated common bile duct of 7.5 mm. Assessment & Plan Otherwise healthy 27-year-old woman with recurrent right upper quadrant pain with associated nausea presents with worsening of symptoms, new radiographic evidence of possible choledocholithiasis. #1 Acute and dilated common bile duct, present on admission, active Concerning for choledocholithiasis and possible cholecystitis, evidenced by dilated duct on ultrasound, sludge in the gallbladder, elevated transaminases, and leukocytosis 12,000. MRCP per gastroenterology recommendations Zosyn IV every 8 hours Nothing by mouth GI and general surgery to consult Continue 0.5 mg IV hydromorphone every 4 hours when necessary for pain management IV fluids 100 mL per hour of normal saline. #2 Acute Transaminitis, present on admission, evaluation ongoing [place] to be due to problem #1 Repeat labs to trend #3 Acute leukocytosis, POA, active [place] to be due to problem #1 Follow with morning labs GI prophylaxis not indicated Pain management as above DVT prophylaxis with subcutaneous heparin Patient admitted under observation status with expected length of stay < 2 midnights for severity of present symptoms, complexities of treatment plan and risk for adverse events CODE STATUS: Full code Pain Evaluation: Adequate Pain Control GI Prophylaxis: Not indicated VTE Prophylaxis: Sub-Q Heparin (Unfractionated) Resuscitation Status: CPR: Attempt Resuscitation Attending Statement The patient was seen and examined together with Dr. Soriano on 03/21 and I agree with the history, exam and plan as outlined in the note above. Derek Tate DO Mar 21, 2017 03:35 Tres Hernandez MD Mar 21, 2017 04:06
[2017-03-21] MEDS: Heparin 5,000 Unit/mL Inj SUBQ SCH ×3 (04:17→16:09)
[2017-03-21] MEDS: HYDROmorphone 1 mg/mL Inj IVPUSH PRN ×4 (04:17→22:02)
[2017-03-21] MEDS: Ondansetron 2 mg/mL 2 mL Inj IVPUSH PRN ×2 (05:08→13:03)
--- NOTE | 2017-03-21 05:43 | NUR ---
pain/Nausea pt c/o 03/16 RUQ abdominal pain. administered IVP Dilaudid. pt reported pain relief on rate of 12/14 which is tolerable for her. pt reported nausea x1. administered zofran which is effective. will continue to monitor.
[2017-03-21 06:52] LABS: BASOPHILS % (AUTO) 0.6 % (0-3); EOSINOPHILS % (AUTO) 5.3 % (0-5); MONOCYTES % (AUTO) 6.4 % (4-12); Mean Corpuscular Hemoglobin 28.1 pg (27.0-35.0); NEUTROPHILS % (AUTO) 55.3 % (40-74); Platelet Count 248 bil/L (150-400)
--- NOTE | 2017-03-21 08:21 | DRSVH ---
PROCEDURE: US ABDOMEN, LIMITED ([id number]) INDICATIONS: RUQ pain TECHNIQUE: Real-time focused scanning was performed of the abdomen, with image documentation. COMPARISON: None. FINDINGS: The liver is normal in size and demonstrates slightly increased echogenicity when compared to the liver. No definite liver lesions are identified. The gallbladder is normal in size. Scatter ed small echogenic foci within the gallbladder may represent sludge versus very small layering gallst ones. The gallbladder is measuring within the upper limits of normal for size. No gallbladder wall thickening is present. No pericholecystic fluid is identified. The common bile duct measures up to approximately 7-8 mm in diameter. Imaged portions of the head of the pancreas are within normal limi ts. However, the pancreas is largely obscure by overlying bowel gas. Imaged portions of the right k idney are unremarkable. There is no hydronephrosis. IMPRESSION: 1. Mild sludge within the gallbladder with associated dilatation of the common bile duct is nonspeci fic. However, this appearance may be seen in the setting of a calculus cholecystitis or choledocholi thiasis. The need for further evaluation utilizing MRCP may be determined clinically. 2. Increased echogenicity of the liver is suggestive of hepatic steatosis. Please correlate clinica lly to exclude other chronic liver diseases. Dictated by: Scout Webb M.D. on 03/21/2017 at 8:13 Approved by: Scout Webb M.D. on 03/21/2017 at 8:17
[2017-03-21] MEDS: Piperacillin-Tazo 3.375 Gm Inj 3.375 GM in Dextrose 5% Minibag Plus 50 ML IV SCH ×2 (08:26→16:17)
--- NOTE | 2017-03-21 09:51 | CONS ---
[address] [address] CONSULTATION REPORT PATIENT: KIT MACKENZIE : 1990 MR#: [id number] ADMIT: 03/21/2017 JOB ID: [id number] DATE OF SERVICE: 03/21/2017 SURGICAL CONSULTATION: REASON FOR CONSULTATION: The patient is seen in consultation at the request of Dr. Pearson regarding further evaluation and management of right upper quadrant abdominal pain and gallbladder with sludge. HISTORY OF PRESENT ILLNESS: The patient is a 27-year-old, otherwise healthy, but obese female who presented to the emergency department last night with complaint of recurrent right upper quadrant abdominal pain. Her first episode occurred on Saturday shortly after eating some barbecue. She developed what she describes as a constant, intense, sharp right upper quadrant pain accompanied by nausea and vomiting, as well as chills, that prompted her to visit the emergency department. On that occasion, she had some leukocytosis of 12.4. Her LFT were within normal limits. She underwent an ultrasound of the abdomen which showed a distended gallbladder without evidence of cholecystolithiasis or cholecystitis. She therefore underwent a CT scan, which showed an enlarged common bile duct and prominence of the gallbladder. She was discharged but then developed pain again last night. It is the same pain and prompted her to come to the emergency department. At this time her white blood cell count was normal at 8.6. Her bilirubin remains normal at 0.5. AST and ALT are mildly elevated. Repeat ultrasound was obtained, this time demonstrating sludge in the gallbladder. She was therefore admitted to the Hospitalist service, and General Surgery was consulted. The patient continues to complain of right upper quadrant abdominal pain. She denies any nausea or vomiting. Plans have been made to obtain an MRCP. PAST MEDICAL HISTORY: None. CURRENT MEDICATIONS: None. ALLERGIES: No known drug allergies. FAMILY HISTORY: Family history is significant for a mother who had a cholecystectomy. SOCIAL HISTORY: She lives in [place]. 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 Does not smoke and rarely drinks alcohol. REVIEW OF SYSTEMS: Full review of systems obtained and significant only at this time for right upper quadrant abdominal pain. PHYSICAL EXAMINATION: Vital signs: Temperature is 36.9, heart rate 66 beats per minute. Blood pressure is 111/72. She is saturating 100% on room air with a respiratory rate of 16 breaths per minute. In general, she appears mildly uncomfortable but in no acute distress. Cardiovascular: She has a regular rate and rhythm. No appreciated murmurs, rubs, gallops. Pulmonary: Lungs clear to auscultation bilaterally. Vascular: She had no carotid bruit. Neck: She has no thyromegaly. Lymph: She has no cervical lymphadenopathy. GI: Her abdomen is obese, soft, nondistended. She has right upper quadrant tenderness to palpation. Extremities: Warm without significant edema. Skin is warm without rash. Neuro is grossly intact. Psych was appropriate. LABORATORIES: Her white blood cell count last night was 8.6, hematocrit was 36.1, platelet count was 248. Bilirubin was 0.5, creatinine is 0.62. IMAGING: Ultrasound was reviewed and as per the HPI. ASSESSMENT AND PLAN: This is a 27-year-old female with sludge in the gallbladder and a history consistent with biliary colic/early cholecystitis. At this point, given the physical exam findings and the history and the ultrasound showing sludge in the gallbladder, I recommend laparoscopic cholecystectomy. Her bilirubin is normal, so I do not think magnetic resonance cholangiopancreatography is a worthwhile study. I have taken the liberty of cancelling that study. I will perform a cholangiogram at the time of surgery. If there is any sludge in the bile duct I will attempt to clear it. If that proves futile, she can have a postoperative endoscopic retrograde cholangiopancreatography. I discussed this with the patient, and she understands and agrees to proceed. She will remain n.p.o. and this will be done this afternoon.
[2017-03-21] MEDS ORDERED: Lactated Ringer's 500 ML IV PRN (10:48)
[2017-03-21] MEDS ORDERED: Lactated Ringer's 1,000 ML IV SCH (10:48)
[2017-03-21] MEDS ORDERED: Phenylephrine 10,000 mCg/mL Inj IVPUSH PRN (10:50)
[2017-03-21] MEDS ORDERED: MetoCLOpramide 5 mg/mL 2 mL Inj IVPUSH PRN (10:50)
[2017-03-21] MEDS ORDERED: Dexamethasone 4 mg/mL Inj IVPUSH PRN (10:50)
[2017-03-21] MEDS ORDERED: Labetalol 5 mg/mL 4 mL Inj IV PRN (10:50)
[2017-03-21] MEDS ORDERED: hydrALAZINE 20 mg/mL Inj IVPUSH PRN (10:50)
[2017-03-21] MEDS ORDERED: HYDROmorphone 1 mg/mL Inj IVPUSH PRN (10:50)
[2017-03-21] MEDS ORDERED: EPHEDrine Sulfate 50 mg/mL Inj IVPUSH PRN (10:50)
--- NOTE | 2017-03-21 10:51 | PCM.HPANE ---
Patient Data Date of Service: Mar 21, 2017 Surgeon Admitting Provider:Tres Hernandez MD Attending Provider:Tres Hernandez MD Primary Care Physician:Brea Aguilar Other Provider: Reason for Visit Ruq Pain Ht/WT & BMI Height (Feet): 5 Height (Inches): 9.00 Weight (Kilograms): 120.600 Body Mass Index 39.38 Allergies Coded Allergies: No Known Allergies (Verified , 03/20/17) Past Anesthesia History Anesthesia History: Denies:: Abnormal Airway, Anesthesia Reactions, Difficult Intubation, Fam Anesthesia Reaction, Fam Malignant Hypertherm, Malignant Hyperthermia Diabetes History Hx Diabetes?: No MRSA MRSA: No Medications Reported Medications Ondansetron ODT 4 Mg Tab.rapdis4 Mg PO Q8H PRN For Nausea/Vomiting 03/20/17 Oxycodone HCl/Acetaminophen 5-325 (Endocet 5-325)1 Each Tablet1-2 Tablet PO Q6H PRN For Pain 03/20/17 Sumatriptan Succinate 50 Mg Wpfdiq33 Mg PO BID PRN Headache AT ONSET OF MIGRAINE. MAY REPEAT IN 2 HRS IF NEEDED. 03/20/17 Ibuprofen 200 Mg [id number] Mg PO QID PRN For Pain Ref 0 03/20/17 Discontinued Reported Medications Clindamycin 300 Mg Hopzuup888 Mg PO BID Ref 0 02/14/17 Yoa481/Iron Fumarate/FA/Dss ( 19 Tablet)1 Each Tablet1 Each PO DAILY 02/14/17 Discontinued Scripts Sumatriptan Succinate 6 Mg/0.5 Ml Cartridge6 Mg SQ Q1H PRN Migraine #6 Ref 2 Prov:Denzel Jenkins MD 03/09/17 Metoclopramide (Reglan)10 Mg Nzswfk88 Mg PO QID PRN For Nausea #15 TABLET Ref 0 Prov:Abebe Ying MD 02/19/17 Tramadol 50 Mg Iqtoij78 Mg PO TID PRN For Pain #20 TABLET Ref 0 Prov:Abebe Ying MD 02/19/17 History History of ENT Problems?: No HEENT History: Denies:: Abnormal Airway Cataracts Difficult Intubation Dysphagia Glaucoma Hearing Problem Sinus Problem TMJ Denture Type: None Teeth Condition: Within Normal Limits Hx of Heart Problems?: No Cardiovascular History: Denies:: Congestive Heart Failure Hypertension Hx of Respiratory Problem?: No Respiratory History: Denies:: Tuberculosis Hx Neurologic Problems?: No Hx of GI Problems?: No Hx of Problems?: Yes Genitourinary History: Positive for:: Urinary Tract Infection (2012) Female Hx: Denies:: Currently Endometriosis Pelvic Inflammatory Problems with Breasts? Hx Musculoskeletal Problems?: No Hx of Psycho/Social Problems?: No Hx Surgeries?: No (wisdom teeth removal) Hx Any Other Health Problems?: No History Blood Transfusions: Positive for:: Accept Blood Products? Denies:: Blood Transfusions Hx Diabetes: No Other Pertinent History: chronic migraines, Occupation: works at [employer] Hx Alcohol Use: Yes (once a month)Alcoholic Drinks Per Day: 2 glassess of wine in once a monthHx Substance Use: No Smoking Status: Never Smoker Have You Smoked inLast 12 mo: No Stop/Bang S-Snoring: Do You Snore Loudly: No T-Tired: feel tired, fatigued: No O-Obsered: Observed not breath: No P-Blood Pressure: treated: No B- Body Mass Index > 35 kg/m2: Yes A- Age over 50: No N- Neck Large Circumference: No G- Gender Male: No SERGO Total Score: 2 SERGO Risk Assessment: Low Risk, <3 Yes SERGO Category 2: Yes Risk Assessment Category Category 1A: Patient has history of documented sleep apnea, and HAS NOT received any narcotic, sedative or anesthesia administration during this stay. Category 1B: Patient has history of documented sleep apnea, and HAS received any narcotic , sedative or anesthesia administration during this stay Category 2: Patient has SUSPECTED Obstructive Sleep Apnea, and HAS received any narcotic , sedative or anesthesia administration during this stay. Category 3: Patient has SUSPECTED Obstructive Sleep Apnea and HAS NOT received narcotic, sedative or anesthesia administration during this stay. Category 4: Outpatient in Procedural Areas with known sleep apnea or who screen positive for High Risk via the STOP/BANG questionnaire. Exam Exam Vital Signs Vital Signs Date Time Temp Pulse Resp B/P Pulse Ox O2 Delivery O2 Flow Rate FiO2 03/21/17 08:20 36.9 66 16 111/72 100 Room Air 03/21/17 04:45 36.5 63 16 98/60 98 Room Air General Appearance: Alert, Oriented X3, Cooperative, No Acute Distress HEENT/AIRWAY: MP 2 Lungs: Clear to Auscultation, Normal Air Movement Heart: Exam Unremarkable, Regular Rate/Rhythm, No Murmurs/Rubs/Gallops Meds/Labs/Diagnostics Admission Meds Current Medications Sodium Chloride (Normal Saline) 1,000 ml @ 0 mls/hr Q0M ONCE IV Last administered on 03/20/17 21:02; Start 03/20/17 at 20:47; Stop 03/20/17 at 20:49 ; Status DC Ondansetron HCl (Zofran Inj) 4 mg ONCE ONCE IVPUSH Last administered on 21:03; Start 03/20/17 at 20:50; Stop 03/20/17 at 20:51; Status DC Ondansetron HCl 4 mg 4 mg ONCE ONCE IVPUSH Last administered on 03/21/17 00: 28; Start 03/20/17 at 23:40; Stop 03/20/17 at 23:41; Status DC Sodium Chloride 1,000 ml @ 100 mls/hr Q10H IV Last administered on 03/21/17 02:04; Start 03/21/17 at 01:18 Piperacillin Sod/ Tazobactam Sod/ Dextrose/Water (Zosyn 3.375 Gm Inj/D5W Minibag Plus) 50 ml @ 100 mls/hr ONCE ONCE IV Last administered on 03/21/17 02:05; Start 03/21/17 at 01:30; Stop 03/21/17 at 01:59; Status DC Heparin Sodium (Porcine) 5000 unit 5,000 unit Q8 SUBQ Last administered on 03/21 08:26; Start 03/21/17 at 03:45 Piperacillin Sod/ Tazobactam Sod/ Dextrose/Water (Zosyn 3.375 Gm Inj/D5W Minibag Plus) 50 ml @ 12.5 mls/hr Q8 IV Last administered on 03/21/17 08:26; Start 03/21/17 at 08:30 Labs Test 03/20/17 21:00 03/20/17 22:38 03/21/17 06:00 Lipase 45U/L (13-60) Procalcitonin 0.03ng/mL (0.00-0.08) Human Chorionic Gonadotropin, Qual 1.4 (Negative) [address] Top Tube Received (Received) Urine Color Yellow (YELLOW) Urine Appearance Clear (CLEAR,HAZY) Urine pH 6.5 (5.0-8.0) Urine Specific Catarina 1.019 (1.003-1.035) Urine Protein Negativemg/dL (NEG,TRACE) Urine Glucose (UA) Negativemg/dL (NEGATIVE) Urine Ketones Negativemg/dL (NEGATIVE) Urine Occult Blood Negative (NEGATIVE) Urine Nitrite Negative (NEGATIVE) Urine Bilirubin Negative (NEGATIVE) Urine Urobilinogen Normalmg/dL (NORMAL) Urine Leukocyte Esterase Negative (NEGATIVE) Urine RBC 0-2/hpf (0-2) Urine WBC 0-5/hpf (0-5) Urine Epithelial Cells Many/hpf (NONE-MOD) Urine Crystals None seen (NONE SEEN) Urine Bacteria Few/hpf (NONE-FEW) Urine Hyaline Casts None/lpf (NONE) Urine Granular Casts None seen (NONE SEEN) Urine Waxy Casts None seen (NONE SEEN) Urine Red Blood Cell Casts None seen (NONE SEEN) Urine White Blood Cell Casts None seen (NONE SEEN) Urine Mucus None seen (None Seen) Urine Trichomonas None seen (NONE SEEN) Urine Yeast None (NONE SEEN) Urinalysis Comment None Urine Culture Reflexed Not indicated White Blood Count 8.6th/mm3 (3.8-10.1) Red Blood Count 4.20mil/mm3 (3.90-5.20) Hemoglobin 11.8g/dL (12.0-15.6) Hematocrit 36.1% (35.0-46.0) Mean Corpuscular Volume 86.0fL (81-100) Mean Corpuscular Hemoglobin 28.1pg (27.0-35.0) Mean Corpuscular Hemoglobin Concent 32.7% (32.0-37.0) Red Cell Distribution Width 14.0% (12.3-15.4) Platelet Count 248bil/L (150-400) Neutrophils (%) (Auto) 55.3% (40-74) Lymphocytes (%) (Auto) 32.2% (14-46) Monocytes (%) (Auto) 6.4% (4-12) Eosinophils (%) (Auto) 5.3% (0-5) Basophils (%) (Auto) 0.6% (0-3) Sodium Level 139mEq/L (134-144) Potassium Level 4.0mEq/L (3.5-5.2) Chloride Level 106mEq/L (97-108) Carbon Dioxide Level 24mmol/L (18-29) Blood Urea Nitrogen 9mg/dL (6-20) Creatinine 0.62mg/dL (0.57-1.00) Estimat Glomerular Filtration Rate 165mL/min (>59) Glucose Level 93mg/dL (60-99) Calcium Level 8.1mg/dL (8.5-10.1) Total Bilirubin 0.5mg/dL (0.0-1.2) Aspartate Amino Transf (AST/SGOT) 106U/L (0-50) Alanine Aminotransferase (ALT/SGPT) 114U/L (0-32) Alkaline Phosphatase 84U/L (25-150) Total Protein 6.5g/dL (6.4-8.4) Albumin 3.5g/dL (3.4-5.0) Plan Impression Patient chart reviewed, patient interviewed and anesthestic plan with risks, benefits, and alternatives discussed, and informed consent obtained. NPO per Anesth. Guidelines: Yes ASA Physical Status: ASA2 Plus Emergency Anesthetic Plan: GA Bene/Risks/Altern/Consents: Yes HP Complete Prior to Induction: Yes Lee Saucedo MD Mar 21, 2017 10:51
[2017-03-21] MEDS ORDERED: Lidocaine 1%/Epi 1:100,000 30 mL MDV INFIL ONE (10:55)
[2017-03-21] MEDS ORDERED: Bupivacaine-MPF 0.25% 30 mL Inj INFILTRATE ONE (10:55)
[2017-03-21] MEDS: fentaNYL-PF 50 mCg/mL 2 mL Inj IVPUSH PRN ×2 (12:23→12:40)
--- NOTE | 2017-03-21 13:07 | PCM.ANEP1 ---
Post Anesthesia PACU Phase 1 Assessment Date of Service: Mar 21, 2017 Vital Signs Vital Signs Date Time Temp Pulse Resp B/P Pulse Ox O2 Delivery O2 Flow Rate FiO2 03/21/17 12:41 70 17 94/72 99 Room Air 03/21/17 12:35 36.8 74 17 147/72 98 Room Air 03/21/17 12:30 67 17 135/73 98 Room Air 03/21/17 12:25 70 14 138/77 100 Room Air 03/21/17 12:20 66 17 154/72 99 Room Air 03/21/17 12:15 73 19 154/69 100 Room Air 03/21/17 12:11 36.9 73 22 158/73 100 Room Air 03/21/17 08:20 36.9 66 16 111/72 100 Room Air Anesthetic Administered: GA Level of Alertness: Awake, talking Pain: Yes Pain Scale Score: 6 Nausea or Vomiting: No CV Function & Hydration Stable: Yes Airway Device: Endotrachial Tube Oxygen Delivery: Room Air Lungs: Clear to Auscultation, Normal Air Movement PACU Phase 2 Assessment Complications: No Follow up Care: N/A Patient Instructions Provided: N/A Lee Saucedo MD Mar 21, 2017 13:07
--- NOTE | 2017-03-21 13:41 | OP ---
[address] [address] OPERATIVE REPORT PATIENT: KIT MACKENZIE : 1990 MR#: [id number] ADMIT: 03/21/2017 JOB ID: [id number] DATE OF SURGERY: 03/21/2017 ANESTHESIA: General. PREOPERATIVE DIAGNOSIS(ES): Acute cholecystitis. POSTOPERATIVE DIAGNOSIS(ES): Acute cholecystitis. OPERATIVE PROCEDURE: 1. Laparoscopic cholecystectomy. 2. Intraoperative cholangiogram. SURGEON: Dr. Adi Donaldson. ASSISTANTS: CHICA Donovan (the cable splicer assistant was required for the safe and timely completion of the case). COMPLICATIONS: None. ESTIMATED BLOOD LOSS: Less than 5 mL. CONDITION: Satisfactory. SPECIMEN: Gallbladder. FINDINGS: There was some pericholecystic edema. However, the gallbladder was not significantly inflamed. Cholangiogram demonstrated normal extrahepatic biliary anatomy with no evidence of choledocholithiasis. There is good flow into the duodenum. INDICATIONS/SIGNIFICANT HISTORY: The patient is a 27-year-old female, who was admitted last night with a recurrent right upper quadrant abdominal pain. Ultrasound showed sludge in the gallbladder but no stones. This was her second episode in the last week. The ultrasound suggested a slightly enlarged common bile duct. After seeing the patient, she agreed to undergo cholecystectomy. OPERATIVE TECHNIQUE: The patient was taken to the operating room and placed in the supine position. General anesthesia was administered. The abdomen was prepped and draped in a standard surgical fashion. A procedural pause was performed. Entry was gained into the abdomen through a supraumbilical incision using the 10 mm Optiview trocar. Pneumoperitoneum was achieved without complication. Local anesthetic was injected, followed by insertion of 5 mm ports in the subxiphoid as well as two in the right upper quadrant. Gallbladder was grasped and retracted cephalad. There were a few adhesions that were taken down. Dissection was then begun to identify the cystic duct and cystic artery. Critical view of safety was achieved. A single clip was placed on the cystic artery and this was taken with cautery. I then placed a clip on the gallbladder cystic duct junction and made a ductotomy. Cholangiocatheter was inserted and cholangiogram obtained with findings as above. Two more clips then placed on the duct and the duct completely transected. During the dissection, there had been a small hole made in the gallbladder and a fair amount of bile was spilled but no stones. This was completely aspirated and the surgical bed was irrigated. I then completed the dissection of the gallbladder off the cystic plate. The gallbladder was placed in EndoCatch bag and removed through the umbilical port site. The surgical bed was inspected again and irrigated. It was completely hemostatic. The umbilical fascia was then closed with 0 PDS with a laparoscopic suture passer. The lateral ports removed under direct visualization followed by release of pneumoperitoneum and removal of remaining port. Skin was closed using 4-0 Monocryl. The entire procedure was well tolerated without complication.
[2017-03-21] MEDS: oxyCODONE-Acetamin 5-325 mg Tablet PO PRN ×2 (13:53→19:54)
--- NOTE | 2017-03-21 14:35 | NUR ---
Social Work: Screen D: Per EMR review, pt is a 27 year old female admitted for RUQ pain. Pt is Red GOMES with no supplement. PCP is AFRICA Tim. NOK is Ashlie King, mother, . Advanced directives information provided to pt. No Readmit score entered at this time. A: Pt lives in [place] and is I with ADLs at baseline. Pt works a [employer]. Pt has been ambulating I during admission. P: Anticipate pt to discharge home via POV and no sw needs; STRIP WINDER to continue to follow and assist with safe discharge planning. Maria Fernanda Dickens MSW
--- NOTE | 2017-03-21 16:58 | DRSVH ---
PROCEDURE: X-RAY OPERATIVE CHOLANGIOGRAM ([id number]) INDICATIONS: CHOLECYSTITIS COMPARISON: [facility], US, ABDOMEN LTD, 03/20/2017, 23:24. [facility], CT, CT ABD PELVIS W CON, 03/17/2017, 23:08. FINDINGS: Biliary ducts: The surgeon injected contrast into the biliary ducts after cannulation of the cystic duct stump. Visualized intra- and extrahepatic bile ducts are normal in caliber, without strictures. No intraluminal filling defects to suggest retained ductal stones or sludge. No evidence for iatro genic ductal injury. Duodenum: Contrast flows promptly through the sphincter of Oddi into the duodenum, which appears nor mal in caliber. IMPRESSION: Normal operative cholangiogram. Dictated by: Gopi COREAS Interpreted: Anna Lee MD on 03/21/2017 at 13:00 Approved by: Anna Lee M.D. on 03/21/2017 at 16:56
--- NOTE | 2017-03-21 18:40 | NUR ---
Transfer to/from OR Pt. transferred to OR in stable condition at 1010. Returned at 1300 in stable condition. RA, able to stand up to BSC to void, but became nauseated with activity. When she laid back down, it eventually resolved but I gave her some IV ondansetron as well. Pain has been managed with PO percocet and IV dilaudid for breakthrough pain. Ice pack applied on abdomen which is also effective.
[2017-03-22] MEDS: Heparin 5,000 Unit/mL Inj SUBQ SCH ×2 (00:29→08:29)
[2017-03-22] MEDS: Piperacillin-Tazo 3.375 Gm Inj 3.375 GM in Dextrose 5% Minibag Plus 50 ML IV SCH ×2 (00:29→08:28)
[2017-03-22] MEDS: Ondansetron 2 mg/mL 2 mL Inj IVPUSH PRN (00:32)
--- NOTE | 2017-03-22 05:06 | NUR ---
pain/Nausea pt c/o 8/10 RUQ abdominal pain. administered PO percocet and IVP Dilaudid for breakthrough pain. pt reported pain relief on rate of 3-4/10 which is tolerable for her. pt reported nausea x1. administered zofran which is effective. 4 lap shad sites C/D/I. will continue to monitor and provide care.
[2017-03-22 05:50] VITALS: BP 103/62; PULSE 69; RESP 14; O2SAT 97
[2017-03-22 06:04] LABS: BASOPHILS % (AUTO) 0.1 % (0-3); EOSINOPHILS % (AUTO) 0.1 % (0-5); MONOCYTES % (AUTO) 5.2 % (4-12); Mean Corpuscular Hemoglobin 27.8 pg (27.0-35.0); Mean Corpuscular Volume 85.5 fL (81-100); NEUTROPHILS % (AUTO) 78.8 % (40-74); Platelet Count 267 bil/L (150-400)
[2017-03-22 06:59] LABS: Phosphorus 3.5 mg/dL (2.5-4.9)
[2017-03-22] MEDS: 0.9% Sodium Chloride 1,000 ML IV SCH (07:18)
[2017-03-22 08:30] VITALS: BP 113/73; PULSE 54; RESP 16; O2SAT 99
[2017-03-22] MEDS: oxyCODONE-Acetamin 5-325 mg Tablet PO PRN ×2 (08:31→13:30)
--- NOTE | 2017-03-22 08:39 | PCM.PNSURG ---
Subjective Date of Service: Mar 22, 2017 Date of Service: Mar 22, 2017 Visit Information: Reason for Visit Ruq Pain Surgery/Surgery Date lap shad 03/21 Post-Op Day # 1 s/p lap shad Date of Admission: Mar 21, 2017 at 00:34 Hospital Day # Subjective: Seen today with mother at bedside. some nausea reported but denies emesis. some pain noted but [place] [facility] [place] Denies f/c. No sob or cp. Pain and nausea being effectively managed with current medications. No BM. Postop General: No Shortness of Breath, No Chest Pain Gastrointestinal: Tolerating Oral Feedings, Complains of Nausea Pain Management: PO, IV Push (dilauded) Postop Activity: Ambulating Independently Objective Vital Sign- Last 8 Hours Date Time Temp Pulse Resp B/P Pulse Ox O2 Delivery O2 Flow Rate FiO2 03/22/17 05:50 36.6 69 14 103/62 97 Room Air Intake and Output- Last 8 Hour 03/22/17 Cumulative From/Thru 07:00 03/20/17 20:18 - 03/22/17 06:43 Intake Total 636 ml 3403 ml Output Total 725 ml 2350 ml Balance -89 ml 1053 ml Intake Oral 536 ml 856 ml IV Total 100 ml 2547 ml Output Urine Total 725 ml 2350 ml # Bowel Movements 0 0 General: Alert, Oriented X3 Lungs: Clear to Auscultation Heart: Regular Rate/Rhythm Abdomen: Soft, Appropriately tender SURGICAL WOUND : Wound General Appearence: Steri Strips, Well Approximated, No Erythema, No Discharge, No Inflammatory Changes Dressing & Drainage Status: Intact Result Diagram: 03/22/17 0530 03/22/17 0530 Assessment & Plan Impression satisfactory post op course s/p lap shad. Some pain and nausea but effective control being achieved. Problems: Plan - able to discharge from surgical perspective - follow up Gen Surg PA in 2-3 weeks - May shower starting tomorrow, no bathing - may remove bandaids tomorrow; leave steri strips in place until they fall off - d/c on percocet - stool softener - light activity for 2 weeks - regular diet Pain Management: dilaudid, percocet VTE Prophylaxis: Sub-Q Heparin (Unfractionated) Resuscitation Status: CPR: Attempt Resuscitation Callum Burroughs PA-C Mar 22, 2017 08:39
--- NOTE | 2017-03-22 10:08 | PCM.DIMED ---
Discharge Instructions Date of Service Mar 22, 2017 Dates of Hospitalization Mar 21, 2017 at 00:34 Discharge Diagnosis Discharge Diagnosis - follow up Gen Surg PA in 2-3 weeks - May shower starting tomorrow, no bathing - may remove bandaids tomorrow; leave steri strips in place until they fall off - d/c on percocet - stool softener - light activity for 2 weeks - regular diet Diet Discharge Diet: No restrictions Activity Discharge Activity: Other (Light activity for 2 weeks. 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 ) Call your provider Call your provider for: Fever or Chills, Shortness of breath, Bleeding, Chest pain, Vomitting, Excessive diarrhea Patient Instructions Follow-up Provider: Brae Aguilar Follow-up with PCP in: 1 week Provider: Callum Burroughs PA-C Follow-up in: 2 weeks Eleanor Sewell MD Mar 22, 2017 10:08
[2017-03-22] MEDS ORDERED: ONDA4TAB12 PO (10:09)
[2017-03-22] MEDS ORDERED: OXYC-407 PO (10:09)
[2017-03-22 12:35] VITALS: BP 112/67; PULSE 75; RESP 20; O2SAT 97
--- NOTE | 2017-03-22 14:42 | NUR ---
Discharge 1300 Just prior to starting DC paperwork pt c/o pain 8, requesting IV Dilaudid. Reviewed the need to wait an hour prior to DC if given this medication. Pt not wanting to wait, ice pack provided. 1400 Before reviewing instructions pt reported pain 03/16, PO rx given at this time. Reviewed instruction. stated understanding. All belongings taken. Taken out in w/ch to home in private auto Scripts sent in packet.
--- NOTE | 2017-03-22 14:58 | PCM.DC.MED ---
Discharge Summary Date of Service Mar 22, 2017 Dates of Hospitalization Date of Hospital Admission Mar 21, 2017 at 00:34 Date of Discharge: Mar 22, 2017 Providers: Admitting Physician: Tres Hernandez MD Primary Care Physician: Brea Aguilar Attending Physician: Adi Donaldson MD Diagnosis at Time of Discharge Diagnosis at Time of Discharge Cholecystitis and elevated LFT/Dilated CBD - follow up Gen Surg PA in 2-3 weeks - May shower starting tomorrow, no bathing - may remove bandaids tomorrow; leave steri strips in place until they fall off - d/c on percocet - stool softener - light activity for 2 weeks - regular diet Consultations [address] [address] CONSULTATION REPORT PATIENT: KIT MACKENZIE : 1990 MR#: [id number] ADMIT: 03/21/2017 JOB ID: [id number] DATE OF SERVICE: 03/21/2017 SURGICAL CONSULTATION: REASON FOR CONSULTATION: The patient is seen in consultation at the request of Dr. Pearson regarding further evaluation and management of right upper quadrant abdominal pain and gallbladder with sludge. HISTORY OF PRESENT ILLNESS: The patient is a 27-year-old, otherwise healthy, but obese female who presented to the emergency department last night with complaint of recurrent right upper quadrant abdominal pain. Her first episode occurred on Saturday shortly after eating some barbecue. She developed what she describes as a constant, intense, sharp right upper quadrant pain accompanied by nausea and vomiting, as well as chills, that prompted her to visit the emergency department. On that occasion, she had some leukocytosis of 12.4. Her LFT were within normal limits. She underwent an ultrasound of the abdomen which showed a distended gallbladder without evidence of cholecystolithiasis or cholecystitis. She therefore underwent a CT scan, which showed an enlarged common bile duct and prominence of the gallbladder. She was discharged but then developed pain again last night. It is the same pain and prompted her to come to the emergency department. At this time her white blood cell count was normal at 8.6. Her bilirubin remains normal at 0.5. AST and ALT are mildly elevated. Repeat ultrasound was obtained, this time demonstrating sludge in the gallbladder. She was therefore admitted to the Hospitalist service, and General Surgery was consulted. The patient continues to complain of right upper quadrant abdominal pain. She denies any nausea or vomiting. Plans have been made to obtain an MRCP. PAST MEDICAL HISTORY: None. CURRENT MEDICATIONS: None. ALLERGIES: No known drug allergies. FAMILY HISTORY: Family history is significant for a mother who had a cholecystectomy. SOCIAL HISTORY: She lives in [place]. 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 Does not smoke and rarely drinks alcohol. REVIEW OF SYSTEMS: Full review of systems obtained and significant only at this time for right upper quadrant abdominal pain. PHYSICAL EXAMINATION: Vital signs: Temperature is 36.9, heart rate 66 beats per minute. Blood pressure is 111/72. She is saturating 100% on room air with a respiratory rate of 16 breaths per minute. In general, she appears mildly uncomfortable but in no acute distress. Cardiovascular: She has a regular rate and rhythm. No appreciated murmurs, rubs, gallops. Pulmonary: Lungs clear to auscultation bilaterally. Vascular: She had no carotid bruit. Neck: She has no thyromegaly. Lymph: She has no cervical lymphadenopathy. GI: Her abdomen is obese, soft, nondistended. She has right upper quadrant tenderness to palpation. Extremities: Warm without significant edema. Skin is warm without rash. Neuro is grossly intact. Psych was appropriate. LABORATORIES: Her white blood cell count last night was 8.6, hematocrit was 36.1, platelet count was 248. Bilirubin was 0.5, creatinine is 0.62. IMAGING: Ultrasound was reviewed and as per the HPI. ASSESSMENT AND PLAN: This is a 27-year-old female with sludge in the gallbladder and a history consistent with biliary colic/early cholecystitis. At this point, given the physical exam findings and the history and the ultrasound showing sludge in the gallbladder, I recommend laparoscopic cholecystectomy. Her bilirubin is normal, so I do not think magnetic resonance cholangiopancreatography is a worthwhile study. I have taken the liberty of cancelling that study. I will perform a cholangiogram at the time of surgery. If there is any sludge in the bile duct I will attempt to clear it. If that proves futile, she can have a postoperative endoscopic retrograde cholangiopancreatography. I discussed this with the patient, and she understands and agrees to proceed. She will remain n.p.o. and this will be done this afternoon. Adi Donaldson MD 03/21/17 0920 <Electronically signed by Adi Donaldson MD> 03/21/17 1243 Procedures XRay, CTs & MRIs Right upper quadrant ultrasound which demonstrated a dilated gallbladder with sludge present and a dilated common bile duct of 7.5 mm. Invasive Procedures [address] [address] OPERATIVE REPORT PATIENT: KIT MACKENZIE : 1990 MR#: [id number] ADMIT: 03/21/2017 JOB ID: [id number] DATE OF SURGERY: 03/21/2017 ANESTHESIA: General. PREOPERATIVE DIAGNOSIS(ES): Acute cholecystitis. POSTOPERATIVE DIAGNOSIS(ES): Acute cholecystitis. OPERATIVE PROCEDURE: 1. Laparoscopic cholecystectomy. 2. Intraoperative cholangiogram. SURGEON: Dr. Adi Donaldson. ASSISTANTS: Callum Burroughs, PAC (the office clerk assistant was required for the safe and timely completion of the case). COMPLICATIONS: None. ESTIMATED BLOOD LOSS: Less than 5 mL. CONDITION: Satisfactory. SPECIMEN: Gallbladder. FINDINGS: There was some pericholecystic edema. However, the gallbladder was not significantly inflamed. Cholangiogram demonstrated normal extrahepatic biliary anatomy with no evidence of choledocholithiasis. There is good flow into the duodenum. INDICATIONS/SIGNIFICANT HISTORY: The patient is a 27-year-old female, who was admitted last night with a recurrent right upper quadrant abdominal pain. Ultrasound showed sludge in the gallbladder but no stones. This was her second episode in the last week. The ultrasound suggested a slightly enlarged common bile duct. After seeing the patient, she agreed to undergo cholecystectomy. OPERATIVE TECHNIQUE: The patient was taken to the operating room and placed in the supine position. General anesthesia was administered. The abdomen was prepped and draped in a standard surgical fashion. A procedural pause was performed. Entry was gained into the abdomen through a supraumbilical incision using the 10 mm Optiview trocar. Pneumoperitoneum was achieved without complication. Local anesthetic was injected, followed by insertion of 5 mm ports in the subxiphoid as well as two in the right upper quadrant. Gallbladder was grasped and retracted cephalad. There were a few adhesions that were taken down. Dissection was then begun to identify the cystic duct and cystic artery. Critical view of safety was achieved. A single clip was placed on the cystic artery and this was taken with cautery. I then placed a clip on the gallbladder cystic duct junction and made a ductotomy. Cholangiocatheter was inserted and cholangiogram obtained with findings as above. Two more clips then placed on the duct and the duct completely transected. During the dissection, there had been a small hole made in the gallbladder and a fair amount of bile was spilled but no stones. This was completely aspirated and the surgical bed was irrigated. I then completed the dissection of the gallbladder off the cystic plate. The gallbladder was placed in EndoCatch bag and removed through the umbilical port site. The surgical bed was inspected again and irrigated. It was completely hemostatic. The umbilical fascia was then closed with 0 PDS with a laparoscopic suture passer. The lateral ports removed under direct visualization followed by release of pneumoperitoneum and removal of remaining port. Skin was closed using 4-0 Monocryl. The entire procedure was well tolerated without complication. Adi Donaldson MD 03/21/17 1156 <Electronically signed by Adi Donaldson MD> 03/21/17 8653 Brief History 27-year-old woman presented to the emergency department after experiencing episodes of sharp right upper quadrant pain. She had an episode earlier this week, Saturday, after eating at a barbecue and came to the [facility] ED at that time for evaluation. She states that she hasd associated nausea vomiting, and increased pain with inhalation particularly with referral to the right upper quadrant. CT scan and ultrasound from Saturday's visit (4 days ago) showed a slightly inflamed gallbladder and mildly elevated common bile duct without evidence of cholelithiasis. She followed up with her primary care doctor, Dr. Brea Aguilar, and she was given a low-fat diet to follow. Today she says the pain returned, "taking my breath away." At time of encounter for admission she denies any chest pain, shortness of breath, lightheadedness or dizziness, no fevers chills, no cold sweats, no dysuria, no constipation, no weakness in her arms hands feet or legs, no rashes. On presentation temperature 36.4, heart rate 86 respiratory rate 16, blood pressure 136/96, 99% on room air WBC 12.0, , AST 68, ALT 57, Procalcitonin 0.03 HCG 1.4 Right upper quadrant ultrasound which demonstrated a dilated gallbladder with sludge present and a dilated common bile duct of 7.5 mm. The case was discussed with veterinarian laboratory animal care regional forester, as well as general surgeon to recommended admission for further evaluation, starting with an MRCP. Hospital Course Otherwise healthy 27-year-old woman with recurrent right upper quadrant pain with associated nausea presents with worsening of symptoms, new radiographic evidence of possible choledocholithiasis. #1 Acute and dilated common bile duct, with cholecystitis/gallbladder sludge Successful laparoscopic cholecystectomy yesterday, now cleared by surgery for discharge. #2 Acute Transaminitis, present on admission, evaluation ongoing [place] to be due to problem #1 Repeat labs show AST slightly high at 196 #3 Acute leukocytosis, POA, active [place] to be due to problem #1 White count now 12.7. She will follow-up the elevated LFT with surgery and her primary care. Exam Vital Signs (Last) Date Time Temp Pulse Resp B/P Pulse Ox O2 Delivery O2 Flow Rate FiO2 03/22/17 05:50 36.6 69 14 103/62 97 Room Air Exam She is resting in bed, accompanied by her . She assures me that her mother will be at home with her as she has 3 small children to care for. Heart is regular rate and rhythm no murmur Lungs are clear to auscultation bilaterally Abdomen is soft bowel since positive mild incisional tenderness as expected. Extremities no ankle edema. She complains about right shoulder discomfort which sounds typical for post operative diaphragmatic irritation. Test 03/20/17 21:00 03/20/17 22:38 03/22/17 05:30 Lipase 45U/L (13-60) Human Chorionic Gonadotropin, Qual 1.4 (Negative) [address] Top Tube Received (Received) Urine Color Yellow (YELLOW) Urine Appearance Clear (CLEAR,HAZY) Urine pH 6.5 (5.0-8.0) Urine Specific [place] 1.019 (1.003-1.035) Urine Protein Negativemg/dL (NEG,TRACE) Urine Glucose (UA) Negativemg/dL (NEGATIVE) Urine Ketones Negativemg/dL (NEGATIVE) Urine Occult Blood Negative (NEGATIVE) Urine Nitrite Negative (NEGATIVE) Urine Bilirubin Negative (NEGATIVE) Urine Urobilinogen Normalmg/dL (NORMAL) Urine Leukocyte Esterase Negative (NEGATIVE) Urine RBC 0-2/hpf (0-2) Urine WBC 0-5/hpf (0-5) Urine Epithelial Cells Many/hpf (NONE-MOD) Urine Crystals None seen (NONE SEEN) Urine Bacteria Few/hpf (NONE-FEW) Urine Hyaline Casts None/lpf (NONE) Urine Granular Casts None seen (NONE SEEN) Urine Waxy Casts None seen (NONE SEEN) Urine Red Blood Cell Casts None seen (NONE SEEN) Urine White Blood Cell Casts None seen (NONE SEEN) Urine Mucus None seen (None Seen) Urine Trichomonas None seen (NONE SEEN) Urine Yeast None (NONE SEEN) Urinalysis Comment None Urine Culture Reflexed Not indicated White Blood Count 12.7th/mm3 (3.8-10.1) Red Blood Count 4.35mil/mm3 (3.90-5.20) Hemoglobin 12.1g/dL (12.0-15.6) Hematocrit 37.2% (35.0-46.0) Mean Corpuscular Volume 85.5fL (81-100) Mean Corpuscular Hemoglobin 27.8pg (27.0-35.0) Mean Corpuscular Hemoglobin Concent 32.5% (32.0-37.0) Red Cell Distribution Width 13.9% (12.3-15.4) Platelet Count 267bil/L (150-400) Neutrophils (%) (Auto) 78.8% (40-74) Lymphocytes (%) (Auto) 15.6% (14-46) Monocytes (%) (Auto) 5.2% (4-12) Eosinophils (%) (Auto) 0.1% (0-5) Basophils (%) (Auto) 0.1% (0-3) Sodium Level 138mEq/L (134-144) Potassium Level 4.5mEq/L (3.5-5.2) Chloride Level 105mEq/L (97-108) Carbon Dioxide Level 21mmol/L (18-29) Blood Urea Nitrogen 8mg/dL (6-20) Creatinine 0.63mg/dL (0.57-1.00) Estimat Glomerular Filtration Rate 162mL/min (>59) Glucose Level 132mg/dL (60-99) Calcium Level 8.7mg/dL (8.5-10.1) Phosphorus Level 3.5mg/dL (2.5-4.9) Magnesium Level 2.0mg/dL (1.6-2.6) Total Bilirubin 0.4mg/dL (0.0-1.2) Aspartate Amino Transf (AST/SGOT) 196U/L (0-50) Alanine Aminotransferase (ALT/SGPT) 211U/L (0-32) Alkaline Phosphatase 119U/L (25-150) Total Protein 6.6g/dL (6.4-8.4) Albumin 3.6g/dL (3.4-5.0) Procalcitonin 0.03ng/mL (0.00-0.08) Discharge Medications As needed Ibuprofen (Ibuprofen) 200 Mg Capsule 200-400 MG PO QID PRN PRN For Pain ( Reported) Ondansetron ODT (Ondansetron ODT) 4 Mg Tab.rapdis 4 MG PO Q8H PRN PRN For Nausea /Vomiting Prescribed by: ANU SEWELL MD Oxycodone HCl/Acetaminophen 5-325 (Endocet 5-325) 1 Each Tablet 1-2 TABLET PO Q6H PRN PRN For Pain Prescribed by: ANU SEWELL MD Sumatriptan Succinate (Sumatriptan Succinate) 50 Mg Tablet 50 MG PO BID PRN PRN Headache (Reported) AT ONSET OF MIGRAINE. MAY REPEAT IN 2 HRS IF NEEDED. Followup Plan Discharge Diet: No restrictions Discharge Activity: Other (Light activity for 2 weeks. 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 ) Follow-up Provider: Brea Aguilar Follow-up with PCP in: 1 week Provider: Callum Burroughs PA-C Follow-up in: 2 weeks Eleanor Sewell MD Mar 22, 2017 10:10
--- NOTE | 2017-03-25 14:42 | PATH ---
SURGICAL PATHOLOGY Attending Physician:Adi Donaldson MD CASE STATUS: Signed Out PATIENT NAME: KIT MACKENZIE PID: [id number] : 1990 DATE COLLECTED:03/21/2017 21:50 SPECIMEN: Gallbladder CLINICAL HISTORY: CHOLELITHIASIS 1). GALLBLADDER FINAL DIAGNOSIS: 1.GALLBLADDER: ACALCULOUS CHRONIC CHOLECYSTITIS. ICD10 K81.1 GROSS DESCRIPTION: Received in formalin, labeled with the patient's name and "gallbladder" is one gallbladder measuring 7.0 x 3.0 x 1.0 cm. The serosal surface is smooth and glistening. Nydia are located at the cystic duct region. Sectioning reveals the wall to measure up to 0.4 cm in thickness. No stones are identified. The mucosal surface is green and velvety with thick heavy yellow thread-like features throughout. Health Care Specialist sections are submitted in one cassette. ([id number]) MICRO DESCRIPTION: See diagnosis. ICD-9 CODES: CPT CODES: 1: 08015 Electronically Signed Out Charli Galicia MD [facility] Pathology [facility] [address], [place] [address] Technical component performed at [facility], [facility] [address], [place], [address]
== END 2017-03-22 14:05 | disposition home or self-care (01) ==
LOC: SED 20:17 → INTOOBSV 03-21 00:34 → MOC 03-21 00:34
PROVIDERS: ADMIT Hospitalist; ATTEND Hospitalist
PROC: BF001ZZ Plain Radiography of Bile Ducts using Low Osmolar Contrast (ICD-10-PCS; 2017-03-21)
PROC: 0FT44ZZ Resection of Gallbladder, Percutaneous Endoscopic Approach (ICD-10-PCS; principal; 2017-03-21 10:30)
DX: K81.0 Acute cholecystitis (principal); K83.8 Other specified diseases of biliary tract; R74.0 Nonspecific elevation of levels of transaminase and lactic acid dehydrogenase [LDH]; D72.829 Elevated white blood cell count, unspecified
CPT/HCPCS: 36415; 47563; 74300; 76705; 80053; 81000; 83690; 83735; 84100; 84145; 84703; 85025; 96361; 96365; 96366; 96375; 96376; 99285; G0378; J0330; J1100; J1170; J1644; J1885; J2250; J2370; J2405; J2543; J2710; J3010; J7030; J7120; Q9967

== ENCOUNTER 2017-03-24 19:37 | Observation (INO) | payer OTHER ==
[~2017-03-24] VITALS: Ht 175.3 cm; Wt 118.9 kg
[~2017-03-24 19:37] MED LIST changes: -CLIN-78 PO; +IBUP200C PO; -METO-301 PO; +ONDA4TAB12 PO; +OXYC-407 PO; -PREN-56 PO; +SUMA50TA2 PO; -SUMA6KIT2 SQ; -TRAM50TA2 PO
[2017-03-24 19:42] VITALS: BP 119/76; PULSE 74; RESP 18; O2SAT 100
--- NOTE | 2017-03-24 19:58 | ED.REPORT ---
HPI-General Illness Date of Service Mar 24, 2017 ED Provider: Viktor Lam MD A 27 year old female with a history of cholecystectomy on 03/21/2017 presents to the ED complaining of constant, severe RUQ abdominal pain. This pain began fairly suddenly two hours ago and is concentrated in the RUQ, accompanied by constipation, nausea and vomiting. She has not other pertinent complaints at this time and denies hematemesis, urinary retention, inability to pass gas, or hematochezia. The pain is exacerbated by movement and relieved by nothing. She says it hurts her abdomen when she breathes, but denies SOB. The pt has taken two oxycodone without relief. No other complaints at this time. Nursing Notes Stated Complaint: ABDOMINAL PAIN Chief Complaint: Female Abdominal Pain Nursing Notes Reviewed: Yes Allergies: Coded Allergies: No Known Allergies (Verified , 03/24/17) Scheduled PRN Ibuprofen (Ibuprofen) 200 Mg Capsule 200-400 MG PO QID PRN PRN For Pain Ondansetron ODT (Ondansetron ODT) 4 Mg Tab.rapdis 4 MG PO Q8H PRN PRN For Nausea /Vomiting Oxycodone HCl/Acetaminophen 5-325 (Endocet 5-325) 1 Each Tablet 1-2 TABLET PO Q6H PRN PRN For Pain Sumatriptan Succinate (Sumatriptan Succinate) 50 Mg Tablet 50 MG PO BID PRN PRN Headache AT ONSET OF MIGRAINE. MAY REPEAT IN 2 HRS IF NEEDED. General Time Seen by MD: 19:57 Chief Complaint Abdominal pain Hx Obtained From: Patient Arrived By: Walk-in Sudden in Onset?: No Onset Occurred: 3 days ago Location: : Abdomen Quality: Painful Recent Healthcare: Recent doctor visit, Recent hospitalization Similar Sx Previous: Yes Past Medical History Past Medical History Notes: According to previous note the patient is AB+ Past Medical History UTI Past Surgical History wisdom teeth Reports: Cholecystectomy Family History Noncontributory Smoking History Never Smoker Social History Alcohol Use: "Social" Drug Use: Denies drug use Other Social History: Good social support, , Local resident Occupation works at [employer] Ambulatory Status Independent Review of Systems denies urinary retention denies inability to pass gas Full Review of Systems Constitutional: Denies: Chills, Fever Respiratory: Denies: Non-productive cough, Shortness of breath GI: Reports: Abdominal pain, Constipation, Nausea, Vomiting, Denies: Hematemesis, Hematochezia Skin: Denies Rash Complete sys rev & neg: except as marked. Physical Exam Constitutional: Well-developed, well-nourished. Not diaphoretic, but appears uncomfortable. Head: Normocephalic and atraumatic. Mouth/Throat: Oropharynx is clear and moist. No oropharyngeal exudate. Eyes: EOM are normal. Pupils are equal, round, and reactive to light. Neck: Supple, no tracheal deviation. Cardiovascular: Normal rate, regular rhythm. Equal and intact distal pulses throughout. Pulmonary/Chest: Effort normal and breath sounds normal. No respiratory distress. Abdominal: Soft. No distension. Marked RUQ tenderness to palpation. Some tenderness throughout abdomen. Voluntary guarding. Bowel sounds present. Musculoskeletal: Range of motion grossly intact, moving all extremities. No edema or tenderness appreciated. Neurological: AOx3. Grossly nonfocal exam. Strength and sensation intact and equal to bilateral upper and lower extremities. Skin: Warm and dry, no rashes or pallor appreciated. Laparoscopic sites appear to be healing well. Psychiatric: Appropriate mood and affect. Behavior appears normal. Vital Signs Vital Signs Date Time Temp Pulse Resp B/P Pulse Ox O2 Delivery O2 Flow Rate FiO2 03/24/17 19:42 36.3 74 18 119/76 100 Room Air Initial VS: Reviewed Interpretation & Diagnostics CT Abdomen: Nightshift Report: IMPRESSION: Gallbladder has been removed. There is a fluid collection in the gallbladder fossa measuring 5 cm in greatest dimension. Differential diagnosis includes normal postoperative seroma, hematoma, infected hematoma or biloma. Please correlate clinically. Lab Results Interpretation Result Diagram: 03/24/17199903/24/171999 Test 03/24/17 20:00 03/24/17 20:50 White Blood Count 9.4th/mm3 (3.8-10.1) Red Blood Count 5.04mil/mm3 (3.90-5.20) Hemoglobin 13.9g/dL (12.0-15.6) Hematocrit 42.7% (35.0-46.0) Mean Corpuscular Volume 84.7fL (81-100) Mean Corpuscular Hemoglobin 27.6pg (27.0-35.0) Mean Corpuscular Hemoglobin Concent 32.6% (32.0-37.0) Red Cell Distribution Width 14.3% (12.3-15.4) Platelet Count 290bil/L (150-400) Neutrophils (%) (Auto) 58.9% (40-74) Lymphocytes (%) (Auto) 26.8% (14-46) Monocytes (%) (Auto) 8.4% (4-12) Eosinophils (%) (Auto) 5.4% (0-5) Basophils (%) (Auto) 0.4% (0-3) Prothrombin Time 10.0sec (8.1-12.5) Prothromb Time International Ratio 0.94ratio Urine Color Dark yellow (YELLOW) Urine Appearance Clear (CLEAR,HAZY) Urine pH 8.0 (5.0-8.0) Urine Specific [place] 1.015 (1.003-1.035) Urine Protein Tracemg/dL (NEG,TRACE) Urine Glucose (UA) Negativemg/dL (NEGATIVE) Urine Ketones 15mg/dL (NEGATIVE) Urine Occult Blood Negative (NEGATIVE) Urine Nitrite Negative (NEGATIVE) Urine Bilirubin Negative (NEGATIVE) Urine Urobilinogen 4.0mg/dL (NORMAL) Urine Leukocyte Esterase Negative (NEGATIVE) Urine RBC 0-2/hpf (0-2) Urine WBC 0-5/hpf (0-5) Urine Epithelial Cells Many/hpf (NONE-MOD) Urine Crystals None seen (NONE SEEN) Urine Bacteria Moderate/hpf (NONE-FEW) Urine Hyaline Casts None/lpf (NONE) Urine Granular Casts None seen (NONE SEEN) Urine Waxy Casts None seen (NONE SEEN) Urine Red Blood Cell Casts None seen (NONE SEEN) Urine White Blood Cell Casts None seen (NONE SEEN) Urine Mucus None seen (None Seen) Urine Trichomonas None seen (NONE SEEN) Urine Yeast None (NONE SEEN) Urinalysis Comment None Urine Culture Reflexed Indicated Hold Urine Received (Received) Sodium Level 136mEq/L (134-144) Potassium Level 4.1mEq/L (3.5-5.2) Chloride Level 99mEq/L (97-108) Carbon Dioxide Level 22mmol/L (18-29) Blood Urea Nitrogen 8mg/dL (6-20) Creatinine 0.57mg/dL (0.57-1.00) Estimat Glomerular Filtration Rate 182mL/min (>59) Glucose Level 115mg/dL (60-99) Calcium Level 9.5mg/dL (8.5-10.1) Magnesium Level 1.9mg/dL (1.6-2.6) Total Bilirubin 1.4mg/dL (0.0-1.2) Aspartate Amino Transf (AST/SGOT) 245U/L (0-50) Alanine Aminotransferase (ALT/SGPT) 415U/L (0-32) Alkaline Phosphatase 183U/L (25-150) Total Protein 8.2g/dL (6.4-8.4) Albumin 4.0g/dL (3.4-5.0) Lipase 115U/L (13-60) Hold Purple Top Tube Received (Received) Hold Blue Top Tube Received (Received) Hold Red Top Tube Received (Received) Hold Beggs Top Tube Received (Received) Lab Results Interpretation: urine negative CT Abd / Pelvis Interpretation IMPRESSION: Status post postcholecystectomy. Hazy attenuation and fat stranding within the gallbladder fossa which could be recent postoperative change although technically nonspecific. No discrete focal fluid collection to suggest abscess. Recommend clinical correlation, and if clinically necessary, HIDA scan could be performed for further assessment. Dictated by: Hitesh Palomino M.D. on 03/24/2017 at 22:06 Approved by: Hitesh Palomino M.D. on 03/24/2017 at 22:12 Interpretation / Wet Read by: Interpret - Radiologist Re-Eval/Medical Decision Med Decision/Clinical Course 27-year-old female presenting to the ED for evaluation of abdominal pain in the setting of recent cholecystectomy. Patient is currently afebrile, uncomfortable though nontoxic appearing. She has an impressive abdominal examination with marked right upper quadrant tenderness with voluntary guarding. Unclear etiology of the patient's symptoms at this time, however given her recent procedure, contacted surgery. 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 Discussed the patient with Dr. Villela of surgery and reviewed images. After discussion with Dr. Villela, decision made to start the patient on Zosyn, obtain an ultrasound, a CT angiogram of the patient's chest, and admit the patient for further management and evaluation. Source of Hx: Old records Time of Eval: 22:30 Re-Evaluation/Progress Note: Pt rechecked, who is resting. She is informed of radiology results, diagnosis, and the need for admission. The pt understands and agrees with the plan. All questions are addressed at this time. Consultation #1: Referral / Consult Name: Leonardo Villela MD Consulted With: Surgeon Call Returned at: 21:32 Solar Panel Installation Supervisor: Agrees with eval, Agrees with plan Note: Consulted with Dr. Villela, surgeon, regarding pt's case. Dr. Villela recommends CT and US. Consultation #2: Referral / Consult Name: Leonardo Villela MD Consulted With: Surgeon Call Returned at: 23:21 Solar Panel Installation Supervisor: Agrees with eval, Agrees with plan, Accepts admit Note: Spoke with Dr. Villela, surgeon, regarding pt's case. Dr. Villela agrees with the evaluation and agrees to admit the pt. Counseled Regarding: Diagnosis, Lab results, Need for admission Discharge & Departure Primary Impression: Abdominal pain Abdominal location: unspecified location Qualified Code: R10.9 - Unspecified abdominal pain Disposition: ADMITTED TO HOSPITAL Discharge Condition All VS Reviewed: Yes Condition: Stable Referrals: Brea Aguilar (PCP) Danielle Attestation Portions of this note were transcribed by Charissa Todd. I, Dr. Lam personally performed the history, physical exam and medical decision-making; I reviewed and confirmed the accuracy of the information in the transcribed note. Signed by: Danielle Sellers, 03/24/2017 and 2344. copies to: Brea Aguilar William B MD Mar 24, 2017 19:58 CHARISSA TODD Mar 24, 2017 20:05
[2017-03-24 20:12] LABS: BASOPHILS % (AUTO) 0.4 % (0-3); EOSINOPHILS % (AUTO) 5.4 % (0-5); MONOCYTES % (AUTO) 8.4 % (4-12); Mean Corpuscular Hemoglobin 27.6 pg (27.0-35.0); Mean Corpuscular Volume 84.7 fL (81-100); NEUTROPHILS % (AUTO) 58.9 % (40-74); Platelet Count 290 bil/L (150-400)
[2017-03-24] MEDS ORDERED: 0.9% Sodium Chloride 1,000 ML IV ONE (20:24)
[2017-03-24] MEDS: Ondansetron 2 mg/mL 2 mL Inj IVPUSH PRN ×3 (20:38→22:23)
[2017-03-24] MEDS: HYDROmorphone 0.5 mg/0.5 mL iSecure Syringe IVPUSH PRN ×4 (20:38→22:23)
[2017-03-24 20:42] LABS: INR 0.94 ratio
[2017-03-24 20:43] LABS: Magnesium 1.9 mg/dL (1.6-2.6)
[2017-03-24 21:00] LABS: APPEARANCE,URINE CLEAR (CLEAR,HAZY); COLOR,URINE DARK YELLOW (YELLOW); OCCULT BLOOD,URINE NEGATIVE (NEGATIVE)
--- NOTE | 2017-03-24 22:14 | DRSVH ---
PROCEDURE: CT ABDOMEN AND PELVIS WITH CONTRAST ([id number]) INDICATIONS: sudden onset abd pain in setting of recent shad TECHNIQUE: After the administration of intravenous contrast, 5 mm thick sections acquired from the diaphragm to the symphysis. 5 mm coronal and sagittal reformats were acquired. For radiation dose reduction, the following was used: automated exposure control, adjustment of mA and/or kV according to patient siz e. COMPARISON: None. FINDINGS: Image quality: Excellent. ABDOMEN: Lung bases: Mild scattered atelectasis in the lung bases Solid organs: Liver and spleen are normal in size and enhancement. Gallbladder surgically absent, t here is hazy attenuation and stranding within the gallbladder fossa. No focal fluid collection to sug gest abscess. Biliary system is non dilated. Pancreas enhances normally. No adrenal nodules. Kidne ys demonstrate normal size and enhancement, without hydronephrosis. Peritoneum and bowel: Bowel loops demonstrate normal wall thickness and caliber. No free fluid or a ir. Appendix appears normal. Nodes and vessels: No retroperitoneal or mesenteric adenopathy by size criteria. Aorta and inferior vena cava are normal in size. Miscellaneous: No ventral hernias. PELVIS: Genitourinary: Bladder wall thickness is normal. Miscellaneous: No inguinal hernias or adenopathy. Bones: No suspicious bony lesions. No vertebral body compression fractures. IMPRESSION: Status post postcholecystectomy. Hazy attenuation and fat stranding within the gallbladder fossa whic h could be recent postoperative change although technically nonspecific. No discrete focal fluid boris ection to suggest abscess. Recommend clinical correlation, and if clinically necessary, HIDA scan cou ld be performed for further assessment. Dictated by: Hitesh Palomino M.D. on 03/24/2017 at 22:06 Approved by: Hitesh Palomino M.D. on 03/24/2017 at 22:12
[2017-03-25] MEDS ORDERED: Piperacillin-Tazo 3.375 Gm Inj 3.375 GM in Dextrose 5% Minibag Plus 50 ML IV SCH (00:07)
[2017-03-25] MEDS: Ondansetron 2 mg/mL 2 mL Inj IVPUSH PRN ×3 (00:21→11:27)
[2017-03-25] MEDS: HYDROmorphone 1 mg/mL Inj IVPUSH PRN ×6 (00:21→18:18)
--- NOTE | 2017-03-25 00:40 | HP ---
[address] [address] HISTORY AND PHYSICAL PATIENT: KIT MACKENZIE : 1990 MR#: [id number] ADMIT: 03/24/2017 JOB ID: [id number] CHIEF COMPLAINT: Postoperative pain. HISTORY OF PRESENT ILLNESS: The patient is a 27-year-old female who underwent a laparoscopic cholecystectomy by my partner, Dr. Donaldson, three days ago. The patient had presented to the hospital due to recurrent right upper quadrant pain and with ultrasound findings of sludge in the gallbladder. The patient underwent a laparoscopic cholecystectomy with intraoperative cholangiogram three days ago and she was released a day later with oxycodone and Zofran medication. The patient was doing well up until earlier today around noon time. She woke up from a nap and subsequently had pain on the right side more so in the right upper quadrant radiating to her back. It hurts to breathe. She had some shortness of breath. She feels bloated and she has been having some hiccups. The patient does feel having some chills and she has had nausea and vomiting. Workup in the emergency department demonstrated a white blood count of 9.4, hematocrit 42.7, platelet count is 290. She has elevation of her LFTs including total bilirubin of 1.4, AST of 245, ALT of 415, and alkaline phosphatase of 183. Her lipase is also elevated at 115. A CT scan was performed in the emergency department that shows surgical absence of the gallbladder, no focal fluid collection to suggest an abscess. There is some hazy attenuation and fat stranding within the gallbladder fossa which could represent postoperative changes. An ultrasound is currently pending. PAST MEDICAL HISTORY: Laparoscopic cholecystectomy three days ago, and obesity with a BMI of 40. MEDICATIONS AT HOME: Zofran and oxycodone. ALLERGIES: None. SOCIAL HISTORY: The patient is , with three children. 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 FAMILY HISTORY: Positive for diabetes. REVIEW OF SYSTEMS: Positive for the right-sided abdominal pain, nausea, vomiting and chills. PHYSICAL EXAMINATION: The patient is currently in the emergency department in no acute distress. Her BMI is 40. Her temperature is 36.3, blood pressure 119/76, pulse is 74, respirations 18. Head is normocephalic, atraumatic. There is no scleral icterus. Neck is supple. Heart is regular rate. Lungs are clear bilaterally. Abdomen is obese. The laparoscopic incisions are healing up nicely without any obvious signs of infection. There is no drainage. Steri-Strips are still intact. On palpation, the patient does have nonspecific tenderness along the right side of her abdomen. There is no peritoneal signs. Extremities shows no clubbing and no cyanosis. Neurologically, the patient is awake and alert, and is able to provide history. ASSESSMENT: This is a 27-year-old female, three days out from a laparoscopic cholecystectomy with intraoperative cholangiogram. According to the operative dictations, the cholangiogram was normal. The patient has mild elevation of her liver function tests (LFTs) three days out from laparoscopic cholecystectomy. The patient has mild elevation of her lipase. We will get the patient admitted for pain control and we will start her on IV antibiotics as well. We will repeat her LFTs in the morning. I would like to have an abdominal ultrasound obtained, and also possibly a HIDA scan obtained as well. Given her morbid obesity, I will also like a chest CT scan to make sure she does not have a pulmonary embolus (PE).
[2017-03-25] MEDS: MetoCLOpramide 5 mg/mL 2 mL Inj IVPUSH PRN ×2 (01:13→07:23)
[2017-03-25 01:19] VITALS: BP 117/77; PULSE 76; RESP 18; O2SAT 100
--- NOTE | 2017-03-25 01:32 | NUR ---
Admission Pt arrived to room 3011 alert and oriented, accompanied by , conversing in full sentences, minimal c/o pain and reports nausea is managed by medications. Pt was oriented to room, call light, bed and policies. Pt arrived with 4 laproscopic sites to abdomen covered with steri-strips.
[2017-03-25 01:35] VITALS: BP 109/70; PULSE 66; RESP 18; O2SAT 95
[2017-03-25 05:42] LABS: BASOPHILS % (AUTO) 0.4 % (0-3); EOSINOPHILS % (AUTO) 3.7 % (0-5); MONOCYTES % (AUTO) 7.6 % (4-12); Mean Corpuscular Hemoglobin 27.8 pg (27.0-35.0); Mean Corpuscular Volume 84.7 fL (81-100); NEUTROPHILS % (AUTO) 69.1 % (40-74); Platelet Count 251 bil/L (150-400)
[2017-03-25 05:44] VITALS: BP 110/69; PULSE 66; RESP 18; O2SAT 98
--- NOTE | 2017-03-25 07:40 | NUR ---
Pt off floor for stress test. Premedicated for pain, per [facility]
--- NOTE | 2017-03-25 08:32 | DRSVH ---
PROCEDURE: CT ANGIO CHEST PULMONARY EMBOLISM ([id number]) INDICATIONS: recent surgery w/ upper abd pain TECHNIQUE: After the administration of intravenous contrast, 2 mm thick sections acquired from the pulmonary api kady to the posterior costophrenic angles. 3-dimensional maximum intensity projection (MIP) coronal a nd sagittal reformats were then acquired through the thorax. For radiation dose reduction, the follo wing was used: automated exposure control, adjustment of mA and/or kV according to patient size. COMPARISON: None. FINDINGS: Image quality: Excellent. Pulmonary arteries: Pulmonary arteries are normal in size, and demonstrate no intraluminal filling d efects to suggest central pulmonary embolism. Lungs and pleura: Lungs are clear. No pleural effusions or pneumothorax. Central and peripheral ai rways are patent. Mediastinum: Heart size is normal, without pericardial effusion. No mediastinal or hilar adenopathy . Thoracic aorta is normal in caliber and enhancement. Esophagus is normal in caliber, without hiat al hernia. Bones and chest wall: No suspicious bony lesions. Ribs and thoracic spine appear intact throughout. Spine degenerative disc disease and facet arthropathy. Thyroid gland is within normal limits. No a xillary or supraclavicular adenopathy. Abdomen: Gallbladder is surgically absent. Visualized upper abdominal solid organs appear normal in the early arterial phase of enhancement. IMPRESSION: No pulmonary embolus. Dictated by: Amparo Dan MD, PhD on 03/25/2017 at 8:26 Approved by: Amparo Dan MD, PhD on 03/25/2017 at 8:29
[2017-03-25] MEDS: Heparin 5,000 Unit/mL Inj SUBQ SCH ×2 (09:22→18:18)
--- NOTE | 2017-03-25 10:00 | DRSVH ---
PROCEDURE: US ABDOMEN, LIMITED ([id number]) INDICATIONS: 27 year-old woman with recent cholecystectomy. She has sudden onset abdominal pain. TECHNIQUE: Real-time focused scanning was performed of the abdomen, with image documentation. COMPARISON: [facility], CT, CT ABD PELVIS W CON, 03/24/2017, 21:44. [facility], US, ABDOMEN LTD, 03/20/2017, 23:24. FINDINGS: Gallbladder is absent consistent with cholecystectomy. There is a complex fluid collection in the gallbladder fossa measuring 5.1 x 2.2 x 2.0 cm. Common bile duct is dilated measuring up to 11 .8 mm. IMPRESSION: 1. A 5.1 x 2.2 x 2.0 cm complex fluid collection in the gallbladder fossa. In this patient with recen t cholecystectomy, differential diagnosis include hematoma, seroma, biloma and early abscess. No significant discrepancy with the assistant shift supervisor radiology preliminary report. Dictated by: Richa Escalona M.D. on 03/25/2017 at 9:53 Approved by: Richa Escalona M.D. on 03/25/2017 at 9:59
--- NOTE | 2017-03-25 11:01 | DRSVH ---
PROCEDURE: NM HIDA SCAN BILE LEAK RADIOPHARMACEUTICAL: 5.2 mCi Tc-99m mebrofenin IV. INDICATIONS: 27 year-old woman with recent cholecystectomy. Evaluate for bile leak. TECHNIQUE: Following intravenous administration of Tc-99m mebrofenin, sequential anterior abdominal images were obtained through at least 60 minutes. COMPARISON: None. FINDINGS: There is normal tracer uptake and excretion by the liver. There is normal visualization o f intrahepatic ducts and common bile duct, as well as normal tracer excretion into duodenum. The gal lbladder is not visualized, consistent with history of cholecystectomy. There is tracer reflux into t he proximal duodenum and the distal stomach. IMPRESSION: 1. No evidence for bile leak. 2. Patent common bile duct. 3. There is bile reflux into the proximal duodenum and the distal stomach. Dictated by: Richa Escalona M.D. on 03/25/2017 at 10:54 Approved by: Richa Escalona M.D. on 03/25/2017 at 10:59
--- NOTE | 2017-03-25 11:17 | NUR ---
Social Work-screening/readiness for discharge: Data:EMR Reviewed. Pt is a 27 y/o female who was admitted on 03/25/17 for abdominal pain per H&P. Pt's insurance is [employer] and [employer] and PCP is AFRICA Tim. EMR Reviewed. SW met with pt and mom Ashlie at bedside to discuss discharge planning, SW role explained. Pt is alert and oriented x3. Pt resides at home with her and children where she remains independent with ADLs. pt works and does not use any DME. SW discussed DPOA/advanced directive, pt confirms she has not completed this, SW provided pt with a copy. Pt states her mom or will provide transport home at discharge. SW provided phone number and plan on white board in room. No anticipated discharge needs. SW will continue to follow if needs arise. Assessment:pt who is independent at baseline. Plan:Pt to discharge home when medically stable via POV. No anticipated discharge needs. SW will continue to follow if needs arise. JENNIFER Solomon
--- NOTE | 2017-03-25 11:30 | NUR ---
Pt off floor for MRCP
--- NOTE | 2017-03-25 12:20 | DRSVH ---
PROCEDURE: MR ABDOMEN MRCP INDICATIONS: ? Choledocholithiasis TECHNIQUE: Coronal HASTE through the abdomen, axial 2-D FLASH in- and bfn-tl-yccpt, and breath-hold T2 FSE with fat saturation through the biliary system and pancreas. Oblique coronal and axial thin-slice HASTE, radial thick-slab HASTE centered on the extrahepatic bile ducts. Intravenous secretin: Not requested. COMPARISON: [facility], CT, CT ABD PELVIS W CON, 03/24/2017, 21:44. [facility], [place], NM HIDA SCAN BILE LEAK, 03/25/2017, 7:50. [facility], CT, CT ANGIO CHEST PE, 03/25, 0:48. FINDINGS: Image quality: Excellent. Pancreas and biliary system: The common bile duct is dilated measuring up to 10 mm in diameter and ta pers to normal caliber at the ampulla. There is minimal intrahepatic biliary prominence. The pancrea tic duct is normal in caliber. Pancreas is normal in morphology, without adjacent soft tissue edema. Pancreatic duct is normal in caliber, without developmental anomalies. Gallbladder is surgically ab sent. There is a complex fluid collection within the gallbladder fossa measuring 2.6 x 2.7 x 5.3 cm, consistent with hematoma. There is a trace amount of free fluid around the liver. Other solid organs: Liver and spleen are normal in size. No adrenal nodules. Both kidneys are norm al in size, without hydronephrosis. Nodes and vessels: No retroperitoneal or mesenteric adenopathy by size criteria. Aorta and inferior vena cava are normal in size. Bowel and peritoneum: Unenhanced bowel loops are normal in caliber. No free fluid. Lung bases: No basal pleural effusions. Heart size is normal. Bones and soft tissues: No ventral hernias. Bone marrow is of normal overall signal. IMPRESSION: 1. A complex fluid collection in the gallbladder fossa. In this patient with recent cholecystectomy, the MRI finding is consistent with hematoma. 2. Prominent common bile duct measuring up to 10 mm, tapering to normal caliber at ampulla. No fillin g defects in the common bile duct to suggest retained common bile duct stones. 3. A trace amount of free fluid around the liver. Dictated by: Richa Escalona M.D. on 03/25/2017 at 12:11 Transcribed by: MICHAEL on 03/25/2017 at 12:19 Approved by: Richa Escalona M.D. on 03/26/2017 at 1:06
[2017-03-25 12:57] VITALS: BP 152/83; PULSE 74; RESP 18; O2SAT 97
--- NOTE | 2017-03-25 14:04 | NUR ---
Pain/Nausea Pt reports sharp URQ 5-6/10 pain. Pain is increased with palpation and during/post morning tests. With increased pain, pt reports having SOB. Administered IV Ketorolac or IV Dilaudid as available for pain control. Elevated HOB and pt teaching on relieving abdominal pressure. Pt reports feeling easier to breathe and pain is reduced to 2-3/10. Reports better relief with Dilaudid.
--- NOTE | 2017-03-25 17:44 | PCM.PNSURG ---
Subjective Date of Service: Mar 25, 2017 Visit Information: Abdominal pain after cholecystecomy Post-Op Day # 4 Date of Admission: Mar 25, 2017 at 00:33 Hospital Day # 1 Subjective: Still has some pain, but improving Objective Vital Sign- Last 8 Hours Date Time Temp Pulse Resp B/P Pulse Ox O2 Delivery O2 Flow Rate FiO2 03/25/17 12:57 36.7 74 18 152/83 97 Room Air Intake and Output- Last 8 Hour 03/25/17 Cumulative From/Thru 07:00 03/24/17 19:42 - 03/25/17 06:18 Intake Total 0 ml 0 ml Output Total 700 ml 700 ml Balance -700 ml -700 ml Intake Oral 0 ml 0 ml Output Urine Total 700 ml 700 ml Abdomen: Soft, Appropriately tender Result Diagram: 03/25/17 0519 03/25/17 0519 Diagnostics: No obvious complication/ choledocholithiasis on any imaging study despite some hepatic function abnormality Assessment & Plan Impression Doing okay Problems: Plan Regular diet Repeat CBC, LFTs, Lipase tomorrow morning Plan discharge if continuing to improve Imelda Saucedo MD Mar 25, 2017 17:44
--- NOTE | 2017-03-25 18:44 | NUR ---
Urination/burning Pt reports burning when urinating and that she didnt urinate much. PVR performed - 109mL residual. notified, order placed for UA. Instructed pt, board updated, new hat placed in toilet.
[2017-03-25 20:09] LABS: APPEARANCE,URINE CLEAR (CLEAR,HAZY); COLOR,URINE DARK YELLOW (YELLOW)
[2017-03-25 20:10] LABS: OCCULT BLOOD,URINE NEGATIVE (NEGATIVE); PH,URINE 5.5 (5.0-8.0)
[2017-03-25 20:22] VITALS: BP 118/70; PULSE 72; RESP 18; O2SAT 98
[2017-03-25] MEDS: oxyCODONE-Acetamin 5-325 mg Tablet PO PRN (22:39)
[2017-03-26 00:17] VITALS: BP 128/72; PULSE 64; RESP 16; O2SAT 97
[2017-03-26] MEDS: Heparin 5,000 Unit/mL Inj SUBQ SCH ×4 (01:09→15:56)
[2017-03-26 04:20] VITALS: BP 132/75; PULSE 70; RESP 18; O2SAT 95
--- NOTE | 2017-03-26 05:06 | NUR ---
Pain/ambulation: Pt c/o abdominal pain x1 and a bloating feeling after she ate dinner, denied n/v; medication administered, effective. Pt ambulated in the hallway prior to HS. Significant other at bedside. Pt slept off/on throughout the night, pleasant and cooperative with care.
[2017-03-26 05:57] LABS: BASOPHILS % (AUTO) 0.3 % (0-3); EOSINOPHILS % (AUTO) 7.3 % (0-5); MONOCYTES % (AUTO) 8.4 % (4-12); Mean Corpuscular Hemoglobin 28.1 pg (27.0-35.0); Mean Corpuscular Volume 84.7 fL (81-100); NEUTROPHILS % (AUTO) 45.2 % (40-74); Platelet Count 245 bil/L (150-400)
[2017-03-26 06:22] LABS: Bilirubin, Direct 0.3 mg/dL (0.0-0.3)
--- NOTE | 2017-03-26 07:40 | PCM.PNSURG ---
Subjective Visit Information: Reason for Visit Abdominal Pain,Transaminitis Surgery/Surgery Date Post-Op Day # Date of Admission: Mar 25, 2017 at 00:33 Hospital Day # Subjective: overall feeling better, no further n/v, still having some RUQ discomfort, tolerated a regular diet last night Objective Objective Arousable in bed No distress or shortness of breath Afebrile Abd: incisions all clean, pt points to RUQ as site of her discomfort, soft, no peritoneal signs 03/24 U Cx --> 100K mixed rober 03/25 UA negative Vital Sign- Last 8 Hours Date Time Temp Pulse Resp B/P Pulse Ox O2 Delivery O2 Flow Rate FiO2 03/26/17 04:20 36.8 70 18 132/75 95 Room Air 03/26/17 00:17 36.9 64 16 128/72 97 Room Air Intake and Output- Last 8 Hour 03/26/17 Cumulative From/Thru 07:00 03/24/17 19:42 - 03/26/17 05:40 Intake Total 200 ml 560 ml Output Total 275 ml 1625 ml Balance -75 ml -1065 ml Intake Oral 200 ml 560 ml Output Urine Total 275 ml 1625 ml # Bowel Movements 0 0 Result Diagram: 03/26/17 0524 03/25/17 0519 Assessment & Plan Impression Postop n/v and abd pain, improved Mild pancreatitis Problems: Plan D/c home today F/U with Dr. Donaldson in 1 week with repeat labs prior to office visit. Leonardo Villela MD Mar 26, 2017 07:40
--- NOTE | 2017-03-26 08:03 | PCM.DISURG ---
Surgical Discharge Instruction Date of Service Mar 26, 2017 Dates of Hospitalization Date of Hospital Admission Mar 25, 2017 at 00:33 Providers Admitting Physician: Leonardo Villela MD Primary Care Physician: Brea Aguilar Attending Physician: Leonardo Villela MD Discharge Diagnosis Discharge Diagnosis Postop abd pain, n/v after lap cholecystectomy Mild pancreatitis Diet Discharge Diet: No restrictions Activity Discharge Activity-General: No restrictions, Activity as pain allows, Activity as energy allows Dressing and Incisional Care Dressing Care: Allow Steri Stripes to fall off Hygiene: May shower Additional Instructions Discharge Instructions F/U with your surgeon Dr Donaldson in 1-2 weeks. Get laboratory tests (LFT's, lipase) just prior to f/u appointment. Rx: none Follow Up Plan Follow-up Provider (F9): Adi Donaldson MD Follow-up appointment: Weeks (1-2) Call your provider for: Fever, Increasing abdominal pain, Vomiting, Discharge @ incision, pus discharge Leonardo Villela MD Mar 26, 2017 08:03
[2017-03-26] MEDS ORDERED: Trimethoprim-Sulfa 160 mg-800 mg Tablet PO SCH (08:30)
--- NOTE | 2017-03-26 08:58 | NUR ---
Social Work-discharge: Data:EMR Reviewed. Pt is on day 1 of hospitalization for abdominal pain per H&P. Pt is medically stable for discharge today. Pt has been up independent in her room. No discharge needs identified. All updated and agreeable to plan. Assessment:Pt who is independent at baseline. Plan:Pt to discharge home today via POV. No discharge needs identified. All updated and agreeable to plan. JENNIFER Solomon Addendum: 03/26/17 at 1301 by FELICITA BROWN SS TAHMINA updated by RN that the discharge has been cancelled. SW will continue to follow. JENNIFER Solomon
[2017-03-26] MEDS: Ondansetron 2 mg/mL 2 mL Inj IVPUSH PRN ×2 (09:16→15:15)
[2017-03-26] MEDS: HYDROmorphone 1 mg/mL Inj IVPUSH PRN ×2 (09:17→15:53)
[2017-03-26] MEDS ORDERED: Dextrose 5% Lactated Ringer's 1,000 ML IV SCH (09:25)
[2017-03-26 09:31] VITALS: BP 112/67; PULSE 65; RESP 19; O2SAT 96
--- NOTE | 2017-03-26 09:42 | PCM.PNSURG ---
Subjective Visit Information: Reason for Visit Abdominal Pain,Transaminitis Surgery/Surgery Date Post-Op Day # Date of Admission: Mar 25, 2017 at 00:33 Hospital Day # Subjective: Pt still not feeling well, having more RUQ pain and nausea. I reviewed her MRCP and CT scan with the radiologist this am. Objective Objective Nauseated in room Eyes closed lying down in bed, cloth on forehead Abd exam unchanged, benign Vital Sign- Last 8 Hours Date Time Temp Pulse Resp B/P Pulse Ox O2 Delivery O2 Flow Rate FiO2 03/26/17 09:31 37.0 65 19 112/67 96 Room Air 03/26/17 04:20 36.8 70 18 132/75 95 Room Air Intake and Output- Last 8 Hour 03/26/17 Cumulative From/Thru 07:00 03/24/17 19:42 - 03/26/17 05:40 Intake Total 200 ml 560 ml Output Total 275 ml 1625 ml Balance -75 ml -1065 ml Intake Oral 200 ml 560 ml Output Urine Total 275 ml 1625 ml # Bowel Movements 0 0 Result Diagram: 03/26/17 0524 03/25/17 0519 Assessment & Plan Impression Postop lap shad with abd pain, elevated LFT's and lipase Problems: Plan Cancel discharge Consult GI service, discussed case with Dr. Batista, who will see pt today Restart IVF Back down to clear liquids. Leonardo Villela MD Mar 26, 2017 09:42
[2017-03-26] MEDS: oxyCODONE-Acetamin 5-325 mg Tablet PO PRN (09:51)
--- NOTE | 2017-03-26 09:57 | NUR ---
Pain & Nausea During AM assessment pt reports feeling a lot better, improved pain, eating and ready to go home. Preparing pt discharge after breakfast. Pt reports pain is coming back. MD paged about pt condition, up to room to further assess. Pt dry heaving, sweating, and having sharp 8/10 abdominal pain radiating to back. Administered IV Dilaudid and Zofran. Pt reports pain has not decreased but is not nauseous anymore. Administered PO Oxycodone and IVF per orders. Discharge cancelled.
[2017-03-26] MEDS: MetoCLOpramide 5 mg/mL 2 mL Inj IVPUSH PRN (12:14)
[2017-03-26 13:20] VITALS: BP 123/76; PULSE 73; RESP 17; O2SAT 94
--- NOTE | 2017-03-26 13:32 | CONS ---
[address] [address] CONSULTATION REPORT PATIENT: KIT MACKENZIE : 1990 MR#: [id number] ADMIT: 03/25/2017 JOB ID: [id number] DATE OF SERVICE: 03/26/2017 I had the pleasure of seeing the patient at [facility] GI service for evaluation of abdominal pain. This is a 27-year-old lady who had laparoscopic cholecystectomy last week. The patient initially came in after having some ribs at her barbecue and started having this pressure-like pain on the right upper quadrant area. Ultrasound found sludge in the gallbladder and the patient underwent cholecystectomy with intraoperative cholangiogram which was negative. Then, she was discharged on oxycodone and Zofran. After discharge, she woke up, and she suddenly had pain in the epigastric and right side. She described as very intense pain which is completely different from what she had prior to cholecystectomy. The pain was described as sharp radiating to the back. It hurts when she breathes and the pain can get so intense that it causes her to be short of breath. This was associated with bloating, decreased appetite, nausea and vomiting. She came to the emergency department and noted that her liver function test was elevated to a total bili of 1.4, AST of 245, ALT of 415, alkaline phosphatase of 183 and lipase was mildly elevated at 115. CT that was done showed surgically absent gallbladder. No focal fluid collection. There is some hazy attenuation and fat stranding within the gallbladder fossa. During the hospitalization, she did not have any elevation of white count. Her hemoglobin remained stable. However, her transaminase did trend down but still elevated. AST went from 245 to 117. ALT 415 to 288. Alkaline phosphatase 183 to 185 and lipase went from 115 to 123. Total bilirubin has normalized to 0.7. She had other scans since this admission. Since admission scans include ultrasound which showed a 5 x 2 x 2 x 2 cm complex fluid collection in the gallbladder fossa and CT was followed and CT basically showed hazy attenuation of fat stranding within the gallbladder fossa, but there was no discrete focal fluid collection to suggest abscess. They also did a HIDA scan, which did not show any evidence of a bile leak. Common bile duct is patent. There is bile reflux into the proximal duodenum and the distal stomach. MRCP was also done, which showed complex fluid collection in the gallbladder fossa and they are calling this hematoma. Common bile duct is 10 mm, tapering normally, no filling defect was noted and trace amount of free fluid was noted as well. Prior to the surgery, her liver function tests back in March 17, 2017 was completely normal with AST of 21, ALT 17, alk phos 61, albumin 3.8, total bili was 0.2. PAST MEDICAL HISTORY: None other than the recent gallbladder removal. FAMILY HISTORY: Noncontributory. SOCIAL HISTORY: Denies use of alcohol, tobacco, drugs. MEDICATION: As above. Her current medications in the hospital include Reglan, Percocet, Dilaudid, Zofran, Toradol. PHYSICAL EXAMINATION: The patient is alert, oriented, does appear comfortable. Vitals: Temperature 37, pulse 65, respirations 19, blood pressure 112/67. Head and neck: No icterus. No lymphadenopathy. Lungs: Clear. Cardiovascular: Regular rate and rhythm. Normal S1, S2. Abdomen: Soft. Epigastric right upper quadrant tenderness moderate without guarding, rebound or firmness with normoactive bowel sounds. Extremities: No pitting edema of the ankles. Skin shows no obvious jaundice. Laboratory data and imaging data as stated above. IMPRESSION and PLAN: This is a 27-year-old lady who had cholecystectomy. Prior to the cholecystectomy had completely normal LFTs. At this point, there seems to be a complex fluid collection within the gallbladder fossa. An MRI is saying this is consistent with hematoma. However, there is no leak. On the other hand, the fluid collection itself can potentially be the cause of inflammation as well. If the fluid collection does affect the surrounding liver, transaminase elevation can occur. There is a fluid collection by 2.6 x 2.7 x 5.3 cm. I spoke with the surgeon and he does not believe that this is abscess and he believes that this is a routine collection of fluids after surgery. On the other hand, they described gravel in the gallblader in the past and the common bile duct is currently dilated at 10 mm. Prior to the cholecystectomy, she had an ultrasound which showed common bile duct at [address] showing common bile duct about 8 mm. However, liver function tests were normal at the time. For now, continue pain control. I called [facility] about possible gravel in the CBD if there was no leak or possible other surgical compromise of the bile duct. EUS with or without sphincterotomy.they accpeted the patient for transfer. i notified Dr Villela to arrange the transfer. I spent at least 60 min with the patient MTDD
--- NOTE | 2017-03-26 15:31 | NUR ---
Social Work-discharge: SW updated that pt is being transferred to [facility] today. No other SW needs identified. JENNIFER Solomon
--- NOTE | 2017-03-26 17:15 | NUR ---
Discharge - Transfer to [facility] Report called to Transfer Nurse - Jacqueline, RN at . Pt medicated for pain prior to discharge. IV site leaking, IV -DCd intact. All belongings with and pt. plan to drive down and meet pt at hospital. [facility] transporting pt out via gurney. Pt denies SOB, strong and steady on feet, family aware of transfer.
--- NOTE | 2017-03-27 14:23 | PCM.DC.SUR ---
Discharge Summary Date of Service: Mar 27, 2017 Date of Hospital Admission: Mar 25, 2017 at 00:33 Date of Discharge: 03/26/2017 Diagnosis at Time of Discharge Post cholecystectomy symptomatic common bile duct stones Problems: Brief History and Physical: The patient is a 27-year-old female who underwent a laparoscopic cholecystectomy 3 days prior to admission. The patient had presented to the hospital due to recurrent right upper quadrant pain and with ultrasound findings of sludge in the gallbladder. The patient underwent a laparoscopic cholecystectomy with intraoperative cholangiogram three days prior to admission and she was released a day later with oxycodone and Zofran medication. The patient was doing well up until the day of admission around noon time. She woke up from a nap and subsequently had pain on the right side more so in the right upper quadrant radiating to her back. It hurt to breathe. She had some shortness of breath. She felt bloated and she had been having some hiccups. The patient did feel like she was having some chills and she had nausea and vomiting. Workup in the emergency department demonstrated a white blood count of 9.4, hematocrit 42.7, platelet count is 290. She had elevation of her LFTs including total bilirubin of 1.4, AST of 245, ALT of 415, and alkaline phosphatase of 183. Her lipase was also elevated at 115. A CT scan was performed in the emergency department that showed surgical absence of the gallbladder, no focal fluid collection to suggest an abscess. There was some hazy attenuation and fat stranding within the gallbladder fossa which could represent postoperative changes. Consultants: GI Hospital Course: The patient was admitted for evaluation, management and symptomatic treatment of abdominal symptoms. Initially she improved, on her third hospital day symptoms recurred and diet was again restricted to clear liquids. GI was consulted who recommended transfer to [facility] for endoscopic ultrasound. The patient was transferred to [facility] for endoscopic ultrasound on her third hospital day. Pathology: None Disposition: The patient was transferred to the care of Dr. Ruperto Kaur at [facility] on her third hospital day Follow-up Plan: She will follow-up in the surgery clinic in 2-3 weeks. Ibuprofen (Ibuprofen) 200 Mg Capsule 200-400 MG PO QID PRN PRN For Pain ( Reported) Ondansetron ODT (Ondansetron ODT) 4 Mg Tab.rapdis 4 MG PO Q8H PRN PRN For Nausea /Vomiting Oxycodone HCl/Acetaminophen 5-325 (Endocet 5-325) 1 Each Tablet 1-2 TABLET PO Q6H PRN PRN For Pain Sumatriptan Succinate (Sumatriptan Succinate) 50 Mg Tablet 50 MG PO BID PRN PRN Headache (Reported) AT ONSET OF MIGRAINE. MAY REPEAT IN 2 HRS IF NEEDED. copies to: Brea Aguilar; Raymond Batista MD, Fred H PA-C Mar 27, 2017 14:23
== END 2017-03-26 17:56 | disposition short-term general hospital (02) ==
LOC: SED 19:37 → MPC 03-25 00:33
PROVIDERS: ADMIT Surgery; ATTEND Surgery
DX: K80.50 Calculus of bile duct without cholangitis or cholecystitis without obstruction (principal); R74.0 Nonspecific elevation of levels of transaminase and lactic acid dehydrogenase [LDH]; R74.8 Abnormal levels of other serum enzymes; Z90.49 Acquired absence of other specified parts of digestive tract; E66.01 Morbid (severe) obesity due to excess calories; Z68.41 Body mass index [BMI] 40.0-44.9, adult; G89.18 Other acute postprocedural pain; R11.2 Nausea with vomiting, unspecified
CPT/HCPCS: 36415; 71275; 74177; 74181; 76705; 78226; 80053; 80076; 81000; 81001; 81025; 83690; 83735; 85025; 85610; 87086; 87088; 96365; 96366; 96375; 96376; 99285; A9537; G0378; J1170; J1644; J1885; J2405; J2543; J2765; J7030; Q9967